=== PATIENT | female | born 1945 | race African-American/Black ===

== ENCOUNTER → 2016-04-30 | Outpatient (CLI) | payer MEDICARE ==
[2016-04-30 11:43] LABS: HEMATOCRIT 34.4 % (36.0-47.0); HEMOGLOBIN 11.6 g/dL (12.0-15.5); HGB HCT DIFFERENCE 0.4; MEAN CORPUSCULAR HEMOGLOBIN 30.5 pg (27.0-33.4); MEAN CORPUSCULAR HGB CONC 33.7 g/dL (32.0-36.0); MEAN CORPUSCULAR VOLUME 91 fl (80-97); WHITE BLOOD COUNT 4.1 10^3/uL (4.0-10.5)
[2016-04-30 12:13] LABS: ALANINE AMINOTRANSFERASE 17 U/L (9-52); ALBUMIN 3.7 g/dL (3.5-5.0); ALKALINE PHOSPHATASE 57 U/L (38-126); ASPARTATE AMINO TRANSFERASE 25 U/L (14-36); BILIRUBIN,TOTAL 0.4 mg/dL (0.2-1.3); CHOLESTEROL 130.27 mg/dL (0-200); Direct HDL 49 mg/dL (>40); MAGNESIUM 1.9 mg/dL (1.6-2.3); TOTAL PROTEIN 5.9 g/dL (6.3-8.2); TRIGLYCERIDES 65 mg/dL (<150)
[2016-04-30 12:14] LABS: ANION GAP 9 (5-19); BLOOD UREA NITROGEN 25 mg/dL (7-20); CALCIUM 9.6 mg/dL (8.4-10.2); CARBON DIOXIDE 31 mmol/L (22-30); CHLORIDE 103 mmol/L (98-107); CREATININE RESULT 1.18 mg/dL (0.52-1.25); GLUCOSE 101 mg/dL (75-110); POTASSIUM 4.5 mmol/L (3.6-5.0); SODIUM 142.9 mmol/L (137-145)
[2016-04-30 12:29] LABS: DIRECT LDL 69 mg/dL (<100)
== END ==
LOC: OD 10:26
PROVIDERS: ATTEND Internal Medicine Cardiovascular Disease
DX: E55.9 Vitamin D deficiency, unspecified (principal); E78.00 Pure hypercholesterolemia, unspecified; Z79.899 Other long term (current) drug therapy
CPT/HCPCS: 36415; 80048; 80061; 80076; 82306; 83735; 84443; 85027

== ENCOUNTER → 2016-05-07 | Outpatient (CLI) | payer MEDICARE | LOC: RAD 15:35 | PROVIDERS: ATTEND Surgery | DX: M79.603 Pain in arm, unspecified (principal); M19.011 Primary osteoarthritis, right shoulder ==

== ENCOUNTER → 2016-07-03 | Outpatient (CLI) | payer MEDICARE ==
[2016-07-03 14:53] LABS: HEMOGLOBIN 12.1 g/dL (12.0-15.5); HGB HCT DIFFERENCE 0.3; MEAN CORPUSCULAR HEMOGLOBIN 29.9 pg (27.0-33.4); MEAN CORPUSCULAR HGB CONC 33.7 g/dL (32.0-36.0); MEAN CORPUSCULAR VOLUME 89 fl (80-97); RED BLOOD COUNT 4.06 10^6/uL (3.72-5.28); RED CELL DISTRIBUTION WIDTH 12.9 % (11.5-14.0); WHITE BLOOD COUNT 3.6 10^3/uL (4.0-10.5)
[2016-07-03 15:23] LABS: ANION GAP 12 (5-19); BLOOD UREA NITROGEN 17 mg/dL (7-20); CALCIUM 9.7 mg/dL (8.4-10.2); CARBON DIOXIDE 28 mmol/L (22-30); CHLORIDE 105 mmol/L (98-107); CREATININE RESULT 1.01 mg/dL (0.52-1.25); GLUCOSE 136 mg/dL (75-110); MAGNESIUM 1.6 mg/dL (1.6-2.3); POTASSIUM 3.7 mmol/L (3.6-5.0); SODIUM 145.1 mmol/L (137-145)
[2016-07-04 15:29] LABS: APPEARANCE,URINE SLIGHTLY-CLOUDY; BILIRUBIN,URINE NEGATIVE (NEGATIVE); GLUCOSE, URINE NEGATIVE (NEGATIVE); KETONES,URINE NEGATIVE (NEGATIVE); LEUKOCYTE ESTERASE,URINE NEGATIVE (NEGATIVE); NITRITE,URINE NEGATIVE (NEGATIVE); PROTEIN,URINE NEGATIVE (NEGATIVE); URINE SPECIFIC GRAVITY 1.014
== END ==
LOC: OD 14:01
PROVIDERS: ATTEND Internal Medicine Nephrology
DX: E11.22 Type 2 diabetes mellitus with diabetic chronic kidney disease (principal); I12.9 Hypertensive chronic kidney disease with stage 1 through stage 4 chronic kidney disease, or unspecified chronic kidney disease; N18.3 Chronic kidney disease, stage 3 (moderate)
CPT/HCPCS: 36415; 80048; 81001; 83735; 85027

== ENCOUNTER → 2016-08-12 | Outpatient (CLI) | payer MEDICARE ==
[2016-08-12 10:30] LABS: ABSOLUTE EOSINOPHILS # (AUTO) 0.2 10^3/uL (0.0-0.6); ABSOLUTE LYMPHOCYTES (AUTO) 0.8 10^3/uL (0.5-4.7); ABSOLUTE MONOCYTES (AUTO) 0.2 10^3/uL (0.1-1.4); ABSOLUTE NEUT (AUTO) 1.9 10^3/uL (1.7-8.2); BASOPHILS % (AUTO) 0.9 % (0-2); HEMATOCRIT 32.3 % (36.0-47.0); HEMOGLOBIN 11.2 g/dL (12.0-15.5); HGB HCT DIFFERENCE 1.3; MEAN CORPUSCULAR HEMOGLOBIN 30.7 pg (27.0-33.4); MEAN CORPUSCULAR HGB CONC 34.8 g/dL (32.0-36.0); MEAN CORPUSCULAR VOLUME 88 fl (80-97); MONOCYTES % (AUTO) 7.8 % (3-13); RED BLOOD COUNT 3.66 10^6/uL (3.72-5.28); RED CELL DISTRIBUTION WIDTH 13.7 % (11.5-14.0); SEGMENTED NEUTROPHILS % (AUTO) 61.3 % (42-78); WHITE BLOOD COUNT 3.2 10^3/uL (4.0-10.5)
[2016-08-12 10:51] LABS: ALANINE AMINOTRANSFERASE 26 U/L (9-52); ALBUMIN 4.1 g/dL (3.5-5.0); ALKALINE PHOSPHATASE 57 U/L (38-126); ANION GAP 12 (5-19); ASPARTATE AMINO TRANSFERASE 25 U/L (14-36); BILIRUBIN,DIRECT 0.1 mg/dL (0.0-0.4); BILIRUBIN,TOTAL 0.5 mg/dL (0.2-1.3); BLOOD UREA NITROGEN 19 mg/dL (7-20); CALCIUM 9.9 mg/dL (8.4-10.2); CARBON DIOXIDE 29 mmol/L (22-30); CHLORIDE 103 mmol/L (98-107); CHOLESTEROL 137.13 mg/dL (0-200); CREATININE RESULT 1.15 mg/dL (0.52-1.25); Direct HDL 64 mg/dL (>40); GLUCOSE 99 mg/dL (75-110); POTASSIUM 3.8 mmol/L (3.6-5.0); SODIUM 144.2 mmol/L (137-145); TOTAL PROTEIN 6.3 g/dL (6.3-8.2); TRIGLYCERIDES 64 mg/dL (<150)
[2016-08-12 11:02] LABS: DIRECT LDL 50 mg/dL (<100)
== END ==
LOC: OD 08:50
PROVIDERS: ATTEND Internal Medicine
DX: E11.9 Type 2 diabetes mellitus without complications (principal); I10 Essential (primary) hypertension; E78.5 Hyperlipidemia, unspecified; E55.9 Vitamin D deficiency, unspecified; R53.83 Other fatigue
CPT/HCPCS: 36415; 80053; 80061; 82043; 82306; 83036; 84443; 85025

== ENCOUNTER → 2016-08-13 | Outpatient (CLI) | payer MEDICARE ==
[2016-08-13 09:28] LABS: ANION GAP 14 (5-19); BLOOD UREA NITROGEN 19 mg/dL (7-20); CALCIUM 10.1 mg/dL (8.4-10.2); CARBON DIOXIDE 30 mmol/L (22-30); CHLORIDE 100 mmol/L (98-107); CREATININE RESULT 1.06 mg/dL (0.52-1.25); GLUCOSE 110 mg/dL (75-110); MAGNESIUM 1.9 mg/dL (1.6-2.3); SODIUM 143.7 mmol/L (137-145)
== END ==
LOC: OD 07:45
PROVIDERS: ATTEND Internal Medicine Cardiovascular Disease
DX: N18.2 Chronic kidney disease, stage 2 (mild) (principal)
CPT/HCPCS: 36415; 80048; 83735

== ENCOUNTER → 2016-08-27 | Outpatient (CLI) | payer MEDICARE ==
[2016-08-27 11:32] LABS: HEMOGLOBIN 11.1 g/dL (12.0-15.5); HGB HCT DIFFERENCE 0.3; MEAN CORPUSCULAR HEMOGLOBIN 30.2 pg (27.0-33.4); MEAN CORPUSCULAR HGB CONC 33.7 g/dL (32.0-36.0); MEAN CORPUSCULAR VOLUME 90 fl (80-97); RED BLOOD COUNT 3.68 10^6/uL (3.72-5.28); RED CELL DISTRIBUTION WIDTH 13.8 % (11.5-14.0); WHITE BLOOD COUNT 3.6 10^3/uL (4.0-10.5)
[2016-08-27 11:38] LABS: APPEARANCE,URINE CLEAR; BILIRUBIN,URINE NEGATIVE (NEGATIVE); GLUCOSE, URINE NEGATIVE (NEGATIVE); KETONES,URINE NEGATIVE (NEGATIVE); LEUKOCYTE ESTERASE,URINE NEGATIVE (NEGATIVE); NITRITE,URINE NEGATIVE (NEGATIVE); PROTEIN,URINE NEGATIVE (NEGATIVE); URINE SPECIFIC GRAVITY 1.009; UROBILINOGEN,URINE NEGATIVE mg/dL (<2.0)
[2016-08-27 11:53] LABS: ANION GAP 10 (5-19); BLOOD UREA NITROGEN 19 mg/dL (7-20); CALCIUM 9.4 mg/dL (8.4-10.2); CARBON DIOXIDE 29 mmol/L (22-30); CHLORIDE 105 mmol/L (98-107); CREATININE RESULT 1.08 mg/dL (0.52-1.25); GLUCOSE 95 mg/dL (75-110); MAGNESIUM 1.9 mg/dL (1.6-2.3); POTASSIUM 4.1 mmol/L (3.6-5.0); SODIUM 143.9 mmol/L (137-145)
== END ==
LOC: OD 10:47
PROVIDERS: ATTEND Internal Medicine Nephrology
DX: E11.22 Type 2 diabetes mellitus with diabetic chronic kidney disease (principal); I12.9 Hypertensive chronic kidney disease with stage 1 through stage 4 chronic kidney disease, or unspecified chronic kidney disease; N18.3 Chronic kidney disease, stage 3 (moderate)
CPT/HCPCS: 36415; 80048; 81001; 83735; 85027

== ENCOUNTER → 2017-02-02 | Outpatient (CLI) | payer MEDICARE ==
--- NOTE | 2017-02-03 17:52 | WOMENS IMAGING REPORT ---
EXAM DESCRIPTION: 3D SCREENING MAMMO RIGHT COMPLETED DATE/TIME: 02/02/2017 9:56 am REASON FOR STUDY: ROUTINE SCREENING Z12.31 Z12.31 ENCNTR SCREEN MAMMOGRAM FOR MALIGNANT NEOPLASM OF JONATAN COMPARISON: Multiple since 2008 TECHNIQUE: Standard craniocaudal and mediolateral oblique views of the right breast recorded using d igital acquisition and breast tomosynthesis. LIMITATIONS: None. FINDINGS: BREAST: Right No masses, worrisome calcifications or architectural distortion. No areas of suspicion. Read with the assistance of CAD. .[facility] - R2 Cenova Version 1.3 .[facility] Imaging - R2 Cenova Version 1.3 .[facility] Imaging - R2 Cenova Version 2.4 .[facility] - R2 Cenova Version 2.4 .[facility] - R2 D[employer] Version 9.2 IMPRESSION: NORMAL MAMMOGRAM. BIRADS 1. BREAST DENSITY: b. There are scattered areas of fibroglandular density. BIRAD: 1 Negative RECOMMENDATION: RECOMMENDATION: ROUTINE SCREENING. Please continue yearly bilateral screening tomosynthesis in January 2018 COMMENT: The patient has been notified of the results by letter per SA requirements. Additional no tification policies are in place for contacting patient with suspicious or incomplete findings. Quality ID #[id number]: The [employer] recommends an annual screening mammogram for women aged 40 years or over. This facility utilizes a reminder system to ensure that all patients receive reminder letters, and/or direct phone calls for appointments. This includes reminders for routine scr eening mammograms, diagnostic mammograms, or other Breast Imaging Interventions when appropriate. Th is patient will be placed in the appropriate reminder system. The [employer] (ACR) has developed recommendations for screening MRI of the breast s in certain patient populations, to be used in conjunction with mammography. Breast MRI surveillance may be appropriate for women with more than 20% lifetime risk of developing breast cancer as determi yuko by genetic testing, significant family history of the disease, or history of mantle radiation for Hodgkins Disease. ACR Practice Guidelines 2008. DBT Technology DBT is a type of tomographic mammography. With conventional mammography, overlapping breast tissue ma y make lesions difficult to detect, even with good compression. DBT uses an x-ray tube that rotates a round the breast, taking images at different angles. These images are then combined to create thin sl ices of the breast that the radiologist can view as a 3D reconstruction. The [employer]rad unit can perform full-field digital mammograms (2D imaging); or DBT (3D imaging); or both, in a combination mode that quickly performs both the mammogram and the tomosynthesis scan while the breast is still compressed. PQRS 6045F: Fluoroscopic imaging is not utilized for breast tomosynthesis. TECHNICAL DOCUMENTATION: FINDING NUMBER: (1) ASSESSMENT: (1) JOB ID: [id number] [employer]- All Rights Reserved
== END ==
LOC: WI 09:31
PROVIDERS: ATTEND Internal Medicine
DX: Z12.31 Encounter for screening mammogram for malignant neoplasm of breast (principal)
CPT/HCPCS: 77063; G0202

== ENCOUNTER → 2017-03-23 | Outpatient (CLI) | payer MEDICARE ==
--- NOTE | 2017-03-23 11:10 | WOMENS IMAGING REPORT ---
EXAM DESCRIPTION: BONE DENSITY HIP/SPINE COMPLETED DATE/TIME: 03/23/2017 10:50 am REASON FOR STUDY: OSTEOPOROSIS M81.0 AGE-RELATED OSTEOPOROSIS W/O CURRENT PATHOLOGICAL FRAC COMPARISON: 11/03/2012 TECHNIQUE: Dual-Energy X-ray Absorptiometry (DEXA) of the AP Spine and Hip. LIMITATIONS: None. FINDINGS: LUMBAR SPINE: The bone mineral density (BMD) measured from L1-L4 in the AP projection correlates with a T-score of 4.0, previously 2.0, which is normal as defined by the World Health Organization. HIP: The bone mineral density (BMD) measured in the left hip correlates with a T-score of 0.6, previously 1.3, which is normal as defined by the World Health Organization. IMPRESSION: 1. LUMBAR SPINE: NORMAL. 2. HIP: NORMAL. COMMENT: The World Health Organization defines low BMD as follows: T-score: Normal: Greater than -1.0 Osteopenia: Between -1.0 and -2.5 Osteoporosis: Less than -2.5 without fractures Established osteoporosis: Less than -2.5 with fractures In general, you may wish to consider: Diagnosis Treatment Follow-up DEXA Normal BMD Prevention 2-3 years Osteopenia Prevention/Therapy 1-2 years Osteoporosis Therapy Yearly TECHNICAL DOCUMENTATION: JOB ID: [id number]- All Rights Reserved
== END ==
LOC: WI 10:31
PROVIDERS: ATTEND Internal Medicine
DX: M81.0 Age-related osteoporosis without current pathological fracture (principal)
CPT/HCPCS: 77080

== ENCOUNTER → 2017-05-19 | Outpatient (CLI) | payer MEDICARE ==
[2017-05-19 08:40] LABS: ABSOLUTE EOSINOPHILS # (AUTO) 0.1 10^3/uL (0.0-0.6); ABSOLUTE LYMPHOCYTES (AUTO) 1.2 10^3/uL (0.5-4.7); ABSOLUTE MONOCYTES (AUTO) 0.5 10^3/uL (0.1-1.4); ABSOLUTE NEUT (AUTO) 4.5 10^3/uL (1.7-8.2); BASOPHILS % (AUTO) 0.7 % (0-2); EOSINOPHILS % (AUTO) 0.9 % (0-6); HEMATOCRIT 32.8 % (36.0-47.0); LYMPHOCYTES % (AUTO) 19.3 % (13-45); MEAN CORPUSCULAR HEMOGLOBIN 29.2 pg (27.0-33.4); MEAN CORPUSCULAR HGB CONC 33.6 g/dL (32.0-36.0); MEAN CORPUSCULAR VOLUME 87 fl (80-97); MONOCYTES % (AUTO) 8.3 % (3-13); PLATELET COUNT 142 10^3/uL (150-450); RED BLOOD COUNT 3.77 10^6/uL (3.72-5.28); RED CELL DISTRIBUTION WIDTH 14.4 % (11.5-14.0); SEGMENTED NEUTROPHILS % (AUTO) 70.8 % (42-78); TOTAL CELLS COUNTED % (AUTO) 100 %; WHITE BLOOD COUNT 6.3 10^3/uL (4.0-10.5)
[2017-05-19 09:07] LABS: ALANINE AMINOTRANSFERASE 26 U/L (9-52); ALBUMIN 4.1 g/dL (3.5-5.0); ALKALINE PHOSPHATASE 55 U/L (38-126); ANION GAP 10 (5-19); ASPARTATE AMINO TRANSFERASE 40 U/L (14-36); BILIRUBIN,DIRECT 0.3 mg/dL (0.0-0.4); BILIRUBIN,TOTAL 0.4 mg/dL (0.2-1.3); BLOOD UREA NITROGEN 28 mg/dL (7-20); CALCIUM 9.9 mg/dL (8.4-10.2); CARBON DIOXIDE 29 mmol/L (22-30); CHLORIDE 106 mmol/L (98-107); CHOLESTEROL 167.39 mg/dL (0-200); GLUCOSE 91 mg/dL (75-110); POTASSIUM 4.4 mmol/L (3.6-5.0); TOTAL PROTEIN 6.6 g/dL (6.3-8.2); TRIGLYCERIDES 48 mg/dL (<150)
[2017-05-19 09:10] LABS: APPEARANCE,URINE SLIGHTLY-CLOUDY; BILIRUBIN,URINE NEGATIVE (NEGATIVE); COLOR,URINE YELLOW; GLUCOSE, URINE NEGATIVE (NEGATIVE); KETONES,URINE NEGATIVE (NEGATIVE); LEUKOCYTE ESTERASE,URINE MODERATE (NEGATIVE); NITRITE,URINE NEGATIVE (NEGATIVE); PROTEIN,URINE NEGATIVE (NEGATIVE); URINE SPECIFIC GRAVITY 1.012; UROBILINOGEN,URINE NEGATIVE mg/dL (<2.0)
[2017-05-19 09:18] LABS: DIRECT LDL 78 mg/dL (<100)
== END ==
LOC: LAB 08:19
PROVIDERS: ATTEND Internal Medicine
DX: E78.5 Hyperlipidemia, unspecified (principal); E11.9 Type 2 diabetes mellitus without complications; I10 Essential (primary) hypertension; D64.9 Anemia, unspecified; R41.82 Altered mental status, unspecified; R41.3 Other amnesia
CPT/HCPCS: 36415; 80053; 80061; 81001; 82607; 83036; 84443; 85025; 86592; 87086

== ENCOUNTER → 2017-05-20 | Outpatient (CLI) | payer MEDICARE ==
--- NOTE | 2017-05-20 10:00 | RADIOLOGY REPORT (SQ) ---
EXAM DESCRIPTION: CT HEAD COMBO COMPLETED DATE/TIME: 05/20/2017 9:10 am REASON FOR STUDY: R41.82 ALTERED MENTAL STATUS, UNSPECIFIED R41.82 ALTERED MENTAL STATUS, UNSPECIFI ED COMPARISON: MRI brain 12/07/2012 CT brain 11/25/2012 TECHNIQUE: Axial images acquired through the brain without and with intravenous contrast. Images re viewed with bone, brain and subdural windows. Images stored on PACS. All CT scanners at this facility use dose modulation, iterative reconstruction, and/or weight based d osing when appropriate to reduce radiation dose to as low as reasonably achievable (ALARA). [facility]: Dose Right [facility]: CareDose [facility]: Dose Right [facility]: Teradose 4D [facility]: [employer] CONTRAST TYPE AND DOSE: contrast/concentration: Isovue 370.00 mg/ml; Total Contrast Delivered: 50.0 ml; Total Saline Delivered: 55.0 ml RENAL FUNCTION: Creatinine 1.0 RADIATION DOSE: CT Rad equipment meets quality standard of care and radiation dose reduction techniq ues were employed. CTDIvol: 49.0 mGy. DLP: 1566 mGy-cm.. LIMITATIONS: None. FINDINGS: VENTRICLES: Normal size and contour. CEREBRUM: No masses. No hemorrhage. No midline shift. Diffuse chronic bifrontal and biparietal white matter disease with low attenuation from chronic small vessel ischemic change. No evidence for acut e infarction. No enhancing lesions. CEREBELLUM: No masses. No hemorrhage. No alteration of density. No evidence for acute infarction. No enhancing lesions. EXTRA-AXIAL SPACES: No fluid collections. No enhancing lesions. ORBITS AND GLOBE: No intra- or extraconal masses. Normal contour of globe without masses. CALVARIUM: No fracture. PARANASAL SINUSES: No fluid or mucosal thickening. SOFT TISSUES: No mass or hematoma. OTHER: No other significant finding. IMPRESSION: Diffuse small vessel ischemic change. No acute findings. No abnormal brain parenchymal enhancement. EVIDENCE OF ACUTE STROKE: NO. TECHNICAL DOCUMENTATION: JOB ID: [id number] Quality ID # [id number]: Final reports with documentation of one or more dose reduction techniques (e.g., Au tomated exposure control, adjustment of the mA and/or kV according to patient size, use of iterative reconstruction technique) 2010 [employer]- All Rights Reserved
== END ==
LOC: RAD 08:49
PROVIDERS: ATTEND Internal Medicine
DX: R41.82 Altered mental status, unspecified (principal)
CPT/HCPCS: 70470

== ENCOUNTER → 2017-06-15 | Outpatient (CLI) | payer MEDICARE ==
[2017-06-15 13:28] LABS: ALANINE AMINOTRANSFERASE 22 U/L (9-52); ALBUMIN 3.8 g/dL (3.5-5.0); ALKALINE PHOSPHATASE 47 U/L (38-126); ANION GAP 11 (5-19); ASPARTATE AMINO TRANSFERASE 26 U/L (14-36); BILIRUBIN,DIRECT 0.3 mg/dL (0.0-0.4); BILIRUBIN,TOTAL 0.4 mg/dL (0.2-1.3); BLOOD UREA NITROGEN 16 mg/dL (7-20); CALCIUM 9.2 mg/dL (8.4-10.2); CARBON DIOXIDE 30 mmol/L (22-30); CHLORIDE 102 mmol/L (98-107); CHOLESTEROL 173.01 mg/dL (0-200); GLUCOSE 107 mg/dL (75-110); POTASSIUM 4.7 mmol/L (3.6-5.0); TOTAL PROTEIN 6.3 g/dL (6.3-8.2); TRIGLYCERIDES 53 mg/dL (<150)
[2017-06-15 13:39] LABS: DIRECT LDL 74 mg/dL (<100)
== END ==
LOC: OD 11:57
PROVIDERS: ATTEND Internal Medicine Cardiovascular Disease
DX: E78.00 Pure hypercholesterolemia, unspecified (principal); I10 Essential (primary) hypertension; Z79.899 Other long term (current) drug therapy
CPT/HCPCS: 36415; 80048; 80061; 80076

== ENCOUNTER 2017-07-22 09:34 | Emergency (ER) | payer MEDICARE ==
--- NOTE | 2017-07-22 10:48 | ER Document Report ---
ED Medical Screen (RME) - General Chief Complaint: Altered Mental Status Stated Complaint: ALTERED MENTAL STATUS Time Seen by Provider: 07/22/17 10:43 Notes: RME DISCLOSURE I have seen this patient as part of a Rapid Medical Evaluation and, if applicable, placed any initially appropriate orders. The patient will be seen and fully evaluated, including a full history and physical exam, by a provider ( in Main ED or Fast Track) when a room becomes available. 71-year-old female sent here from PCP Dr Ayala office for "altered mental status". states that over the past 4 weeks she has been losing her memory and talking about "kids running down the hallway". She stopped driving back in January. The symptoms have been slowly worsening. states that PCP perform blood work and "brain scan" 4 weeks ago. TRAVEL OUTSIDE OF THE [place] IN LAST 30 DAYS: No - Related Data Allergies/Adverse Reactions: codeine [Codeine] Adverse Reaction (Intermediate, Verified 07/22/17 09:37) Nausea Past Medical History - Social History Chew tobacco use (# tins/day): No Frequency of alcohol use: None Drug Abuse: None - Past Medical History Cardiac Medical History: Reports: Hx Hypercholesterolemia, Hx Hypertension Denies: Hx Coronary Artery Disease, Hx Heart Attack Pulmonary Medical History: Reports: Hx Pneumonia - no hospitalization Denies: Hx Asthma, Hx Bronchitis, Hx COPD, Hx Tuberculosis Neurological Medical History: Denies: Hx Cerebrovascular Accident, Hx Seizures Endocrine Medical History: Reports: Hx Diabetes Mellitus Type 2 Renal/ Medical History: Denies: Hx Peritoneal Dialysis GI Medical History: Reports: Hx Gastroesophageal Reflux Disease Musculoskeltal Medical History: Reports Hx Arthritis Past Surgical History: Reports: Hx Hysterectomy, Hx Mastectomy. Denies: Hx Pacemaker - Immunizations Hx Diphtheria, Pertussis, Tetanus Vaccination: Yes - 2005 Physical Exam - Vital signs Vitals: Temp Pulse Resp BP Pulse Ox 97.8 F 73 16 155/79 H 100 07/22/17 09:45 07/22/17 09:45 07/22/17 09:45 07/22/17 09:45 07/22/17 09:45 Course - Vital Signs Vital signs: Temp Pulse Resp BP Pulse Ox 97.8 F 73 16 155/79 H 100 07/22/17 09:45 07/22/17 09:45 07/22/17 09:45 07/22/17 09:45 07/22/17 09:45
--- NOTE | 2017-07-22 11:27 | RADIOLOGY REPORT (SQ) ---
EXAM DESCRIPTION: CT HEAD WITHOUT COMPLETED DATE/TIME: 07/22/2017 11:16 am REASON FOR STUDY: AMS; eval bleed tumor COMPARISON: CT brain 05/20/2017, 11/25/2012 TECHNIQUE: Axial images acquired through the brain without intravenous contrast. Images reviewed wi th bone, brain and subdural windows. Additional sagittal and coronal reconstructions were generated. Images stored on PACS. All CT scanners at this facility use dose modulation, iterative reconstruction, and/or weight based d osing when appropriate to reduce radiation dose to as low as reasonably achievable (ALARA). [facility]: Dose Right [facility]: CareDose [facility]: Dose Right [facility]: Teradose 4D [facility]: [employer] RADIATION DOSE: CT Rad equipment meets quality standard of care and radiation dose reduction techniq ues were employed. CTDIvol: 53.2 mGy. DLP: 964 mGy-cm. mGy. LIMITATIONS: None. FINDINGS: VENTRICLES: Normal size and contour. CEREBRUM: Extensive white matter low attenuation in the bifrontal and biparietal regions and deep per iventricular white matter, similar compared to studies dating back to 11/25/2012. This most likely rep resents advanced white matter disease, chronic small vessel disease. No CT evidence of acute large territory ischemic change, acute intracranial hemorrhage mass effect or midline shift. CEREBELLUM: No masses. No hemorrhage. No alteration of density. No evidence for acute infarction. EXTRAAXIAL SPACES: No fluid collections. No masses. ORBITS AND GLOBE: No intra- or extraconal masses. Normal contour of globe without masses. CALVARIUM: No fracture. PARANASAL SINUSES: No fluid or mucosal thickening. SOFT TISSUES: No mass or hematoma. OTHER: No other significant finding. IMPRESSION: Extensive chronic white matter disease similar compared to 11/25/2012 CT brain. No acute findings. EVIDENCE OF ACUTE STROKE: No COMMENT: Quality ID # 436: Final reports with documentation of one or more dose reduction techniques (e.g., Automated exposure control, adjustment of the mA and/or kV according to patient size, use of iterative reconstruction technique) TECHNICAL DOCUMENTATION: JOB ID: [id number] [employer]- All Rights Reserved Reading location - IP/workstation name: [facility]
[2017-07-22 11:30] LABS: ABSOLUTE EOSINOPHILS # (AUTO) 0.2 10^3/uL (0.0-0.6); ABSOLUTE MONOCYTES (AUTO) 0.5 10^3/uL (0.1-1.4); ABSOLUTE NEUT (AUTO) 2.9 10^3/uL (1.7-8.2); BASOPHILS % (AUTO) 0.6 % (0-2); EOSINOPHILS % (AUTO) 4.6 % (0-6); HEMATOCRIT 34.8 % (36.0-47.0); HEMOGLOBIN 11.6 g/dL (12.0-15.5); LYMPHOCYTES % (AUTO) 22.4 % (13-45); MEAN CORPUSCULAR HEMOGLOBIN 29.3 pg (27.0-33.4); MEAN CORPUSCULAR HGB CONC 33.2 g/dL (32.0-36.0); MEAN CORPUSCULAR VOLUME 88 fl (80-97); MONOCYTES % (AUTO) 9.9 % (3-13); PLATELET COUNT 146 10^3/uL (150-450); RED BLOOD COUNT 3.94 10^6/uL (3.72-5.28); RED CELL DISTRIBUTION WIDTH 14.4 % (11.5-14.0); SEGMENTED NEUTROPHILS % (AUTO) 62.5 % (42-78); TOTAL CELLS COUNTED % (AUTO) 100 %; WHITE BLOOD COUNT 4.6 10^3/uL (4.0-10.5)
[2017-07-22 11:42] LABS: APPEARANCE,URINE CLEAR; BILIRUBIN,URINE NEGATIVE (NEGATIVE); COLOR,URINE YELLOW; GLUCOSE, URINE NEGATIVE (NEGATIVE); KETONES,URINE NEGATIVE (NEGATIVE); LEUKOCYTE ESTERASE,URINE LARGE (NEGATIVE); NITRITE,URINE NEGATIVE (NEGATIVE); PROTEIN,URINE NEGATIVE (NEGATIVE); URINE SPECIFIC GRAVITY 1.013; UROBILINOGEN,URINE NEGATIVE mg/dL (<2.0)
--- NOTE | 2017-07-22 11:44 | ER Document Report ---
ED General - General Chief Complaint: Altered Mental Status Stated Complaint: ALTERED MENTAL STATUS Time Seen by Provider: 07/22/17 10:43 Mode of Arrival: Ambulatory Information source: Patient, Relative Notes: This is a 71-year-old female with a history of hypertension, diabetes, dyslipidemia, breast cancer (status post left mastectomy) who is brought into the emergency room with increasing confusion and wandering. The patient is accompanied by her who states that he first started noticing changes in the patient last January and they have progressively worsened. He states she frequently wanders at night and has been wandering the past 2 nights. He denies any recent fevers, chills, nausea vomiting or illnesses. TRAVEL OUTSIDE OF THE [place] IN LAST 30 DAYS: No - HPI Onset: Last week Onset/Duration: Gradual Quality of pain: No pain Severity: None Pain Level: Denies Associated symptoms: denies: Chest pain, Fever, Shortness of breath Exacerbated by: Denies Relieved by: Denies Similar symptoms previously: Yes Recently seen / treated by doctor: Yes - Related Data Allergies/Adverse Reactions: codeine [Codeine] Adverse Reaction (Intermediate, Verified 07/22/17 09:37) Nausea Past Medical History - General Information source: Patient - Social History Smoking Status: Never Smoker Cigarette use (# per day): No Chew tobacco use (# tins/day): No Frequency of alcohol use: None Drug Abuse: None Lives with: Family Family History: Reviewed & Not Pertinent Patient has suicidal ideation: No Patient has homicidal ideation: No - Past Medical History Cardiac Medical History: Reports: Hx Hypercholesterolemia, Hx Hypertension Denies: Hx Coronary Artery Disease, Hx Heart Attack Pulmonary Medical History: Reports: Hx Pneumonia - no hospitalization Denies: Hx Asthma, Hx Bronchitis, Hx COPD, Hx Tuberculosis Neurological Medical History: Denies: Hx Cerebrovascular Accident, Hx Seizures Endocrine Medical History: Reports: Hx Diabetes Mellitus Type 2 Renal/ Medical History: Denies: Hx Peritoneal Dialysis GI Medical History: Reports: Hx Gastroesophageal Reflux Disease Musculoskeltal Medical History: Reports Hx Arthritis Past Surgical History: Reports: Hx Hysterectomy, Hx Mastectomy. Denies: Hx Pacemaker - Immunizations Hx Diphtheria, Pertussis, Tetanus Vaccination: Yes - 2005 Hx Pneumococcal Vaccination: 01/30/12 Review of Systems - Review of Systems Constitutional: denies: Chills, Fever EENT: No symptoms reported Cardiovascular: No symptoms reported Respiratory: No symptoms reported Gastrointestinal: No symptoms reported Genitourinary: No symptoms reported Female Genitourinary: No symptoms reported Musculoskeletal: No symptoms reported Skin: No symptoms reported Hematologic/Lymphatic: No symptoms reported Neurological/Psychological: See HPI Physical Exam - Vital signs Vitals: Temp Pulse Resp BP Pulse Ox 97.8 F 73 16 155/79 H 100 07/22/17 09:45 07/22/17 09:45 07/22/17 09:45 07/22/17 09:45 07/22/17 09:45 Notes: Physical exam: GENERAL: 71-year-old female, alert, she is to have some baseline dementia. She is tearful but in no acute distress. HEAD: Atraumatic, normocephalic. EYES: Pupils equal round and reactive to light, extraocular movements intact, sclera anicteric, conjunctiva are normal. ENT: TMs normal, nares patent, oropharynx clear without exudates. Moist mucous membranes. NECK: Normal range of motion, supple without obvious mass. LUNGS: Breath sounds clear to auscultation bilaterally and equal. No wheezes rales or rhonchi. HEART: Regular rate and rhythm without murmurs, rubs or gallops. ABDOMEN: Soft, normoactive bowel sounds. No tenderness to palpation. No guarding, no rebound. No masses appreciated. Rectal: Some external hemorrhoids, no masses, good sphincter tone, stool brown: sent for study. EXTREMITIES: Normal range of motion, no pitting or edema. No clubbing or cyanosis. NEUROLOGICAL: Cranial nerves II through XII grossly intact. Normal speech, moving all extremities. Motor 5/5, sensory grossly intact. PSYCH: Tearful SKIN: Warm, Dry, normal turgor, no rashes or lesions noted. Course - Re-evaluation Re-evalutation: 07/22/17 19:26 I discussed case with Dr. Jef plasencia who would like to treat the patient with some ceftriaxone and IV fluids and put her on some Cipro for possible early UTI. He will follow-up with the patient on Thursday in the office. I have discussed this plan with the patient's and he is agreeable to this. - Vital Signs Vital signs: Temp Pulse Resp BP Pulse Ox 97.8 F 72 16 186/78 H 99 07/22/17 17:27 07/22/17 17:27 07/22/17 17:27 07/22/17 17:27 07/22/17 17:27 - Laboratory Result Diagrams: 07/22/17 11:05 07/22/17 11:05 Laboratory results interpreted by me: 07/22/17 07/22/17 07/22/17 11:05 11:05 11:05 Hgb 11.6 L Hct 34.8 L RDW 14.4 H Plt Count 146 L Carbon Dioxide 34 H BUN 21 H Est GFR (Non-Af Amer) 54 L Ur Leukocyte Esterase LARGE H - Diagnostic Test Radiology reviewed: Image reviewed, Reports reviewed - CT of the head shows extensive chronic white matter disease - EKG Interpretation by Me Rate: Normal Rhythm: NSR - EKG shows normal sinus rhythm with a ventricular rate of 70, consistent with LVH. No significant change from previous per Discharge - Discharge Clinical Impression: Altered mental status Condition: Stable Disposition: HOME, SELF-CARE Additional Instructions: We discussed, the labs look generally good. We are going to treat Ms. Lopez for urine infection. She did receive IV ceftriaxone and some IV fluids in the emergency room. The plan will be to start the oral antibiotic tomorrow. Thank you for choosing [facility] for your care. The examination and treatment you have received in the Emergency Department today has been rendered on an emergency basis only and is not intended to be a substitute for complete medical care. You should contact your doctor as it is important that she/he examine you for any new or remaining problems. If given a copy of any lab tests or radiology reports, please bring them with you when you see your physician. If your problem worsens or new symptoms appear and you are unable to arrange prompt follow-up care, return to the Emergency Department. Specific signs to look out for: Worsening mental status changes, fever, not tolerating fluids or any concerns Ms. Lopez is getting worse. Any other instructions: Start the antibiotics tomorrow morning. Take as prescribed. Follow-up with Dr. Fuchs on Thursday Prescriptions: Ciprofloxacin HCl [Cipro 500 mg Tablet] 500 mg PO BID #14 tablet Referrals: MONICA ABBASI MD [Primary Care Provider] - 07/27/17
[2017-07-22 11:45] LABS: ALANINE AMINOTRANSFERASE 31 U/L (9-52); ALBUMIN 4.1 g/dL (3.5-5.0); ALKALINE PHOSPHATASE 62 U/L (38-126); ANION GAP 8 (5-19); ASPARTATE AMINO TRANSFERASE 35 U/L (14-36); BILIRUBIN,DIRECT 0.1 mg/dL (0.0-0.4); BILIRUBIN,TOTAL 0.3 mg/dL (0.2-1.3); BLOOD UREA NITROGEN 21 mg/dL (7-20); CALCIUM 9.4 mg/dL (8.4-10.2); CARBON DIOXIDE 34 mmol/L (22-30); CHLORIDE 103 mmol/L (98-107); GLUCOSE 110 mg/dL (75-110); PHOSPHORUS 3.6 mg/dL (2.5-4.5); POTASSIUM 3.9 mmol/L (3.6-5.0); SODIUM 144.5 mmol/L (137-145); TOTAL PROTEIN 6.5 g/dL (6.3-8.2)
--- NOTE | 2017-07-22 12:08 | RADIOLOGY REPORT (SQ) ---
EXAM DESCRIPTION: CHEST SINGLE VIEW COMPLETED DATE/TIME: 07/22/2017 11:56 am REASON FOR STUDY: altered mental status COMPARISON: CT chest 02/25/2013 Two-view chest 09/23/2013 EXAM PARAMETERS: NUMBER OF VIEWS: One view. TECHNIQUE: Single frontal radiographic view of the chest acquired. RADIATION DOSE: NA LIMITATIONS: None. FINDINGS: LUNGS AND PLEURA: No opacities, masses or pneumothorax. No pleural effusion. MEDIASTINUM AND HILAR STRUCTURES: No masses. Contour normal. HEART AND VASCULAR STRUCTURES: Heart normal in size. Normal vasculature. BONES: No acute findings. HARDWARE: Clips post left mastectomy OTHER: No other significant finding. IMPRESSION: NO ACUTE RADIOGRAPHIC FINDING IN THE CHEST. TECHNICAL DOCUMENTATION: JOB ID: [id number] [employer]- All Rights Reserved Reading location - IP/workstation name: [email or web address]
[2017-07-22] MEDS ORDERED: CEFTRIAXONE INJ 500 MG VIAL IV ONE (13:17)
[2017-07-22] MEDS ORDERED: NORMAL SALINE 500 ML IV ONE (13:18)
[2017-07-22] MEDS ORDERED: CEFTRIAXONE INJ 500 MG VIAL ONE (15:06)
[2017-07-22 17:28] VITALS: BP 186/78
--- NOTE | 2017-07-22 23:29 | EKG REPORT ---
SEVERITY:- ABNORMAL ECG - SINUS RHYTHM LEFT VENTRICULAR HYPERTROPHY : Confirmed by: Elmer White 22-Jul-2017 23:29:00
== END 2017-07-22 17:45 | disposition home or self-care (01) ==
LOC: ER 09:34
DX: R41.82 Altered mental status, unspecified (principal); F03.90 Unspecified dementia, unspecified severity, without behavioral disturbance, psychotic disturbance, mood disturbance, and anxiety; K64.4 Residual hemorrhoidal skin tags; E78.00 Pure hypercholesterolemia, unspecified; I10 Essential (primary) hypertension; E11.9 Type 2 diabetes mellitus without complications; Z90.710 Acquired absence of both cervix and uterus; Z85.3 Personal history of malignant neoplasm of breast; Z88.6 Allergy status to analgesic agent; Z90.12 Acquired absence of left breast and nipple
CPT/HCPCS: 93005; 99285; 96365; 36415; 87086; 83735; 84100; 84443; 85025; 82272; 80053; 81001; 71045; 70450; 93010; J0696; J7040

== ENCOUNTER → 2017-08-28 | Outpatient (CLI) | payer MEDICARE ==
[2017-08-28 08:33] LABS: HEMATOCRIT 34.4 % (36.0-47.0); HEMOGLOBIN 11.6 g/dL (12.0-15.5); MEAN CORPUSCULAR HEMOGLOBIN 30.7 pg (27.0-33.4); MEAN CORPUSCULAR HGB CONC 33.8 g/dL (32.0-36.0); MEAN CORPUSCULAR VOLUME 91 fl (80-97); PLATELET COUNT 132 10^3/uL (150-450); RED BLOOD COUNT 3.79 10^6/uL (3.72-5.28); WHITE BLOOD COUNT 3.4 10^3/uL (4.0-10.5)
[2017-08-28 08:38] LABS: APPEARANCE,URINE SLIGHTLY-CLOUDY; BILIRUBIN,URINE NEGATIVE (NEGATIVE); COLOR,URINE YELLOW; GLUCOSE, URINE NEGATIVE (NEGATIVE); KETONES,URINE NEGATIVE (NEGATIVE); LEUKOCYTE ESTERASE,URINE TRACE (NEGATIVE); NITRITE,URINE NEGATIVE (NEGATIVE); PROTEIN,URINE NEGATIVE (NEGATIVE); URINE SPECIFIC GRAVITY 1.015; UROBILINOGEN,URINE NEGATIVE mg/dL (<2.0)
[2017-08-28 08:50] LABS: ANION GAP 8 (5-19); BLOOD UREA NITROGEN 22 mg/dL (7-20); CALCIUM 9.2 mg/dL (8.4-10.2); CARBON DIOXIDE 33 mmol/L (22-30); CHLORIDE 107 mmol/L (98-107); GLUCOSE 105 mg/dL (75-110); PHOSPHORUS 2.5 mg/dL (2.5-4.5); POTASSIUM 4.5 mmol/L (3.6-5.0); SODIUM 147.7 mmol/L (137-145)
== END ==
LOC: LAB 08:12
PROVIDERS: ATTEND Internal Medicine Nephrology
DX: I12.9 Hypertensive chronic kidney disease with stage 1 through stage 4 chronic kidney disease, or unspecified chronic kidney disease (principal); N18.2 Chronic kidney disease, stage 2 (mild); E11.9 Type 2 diabetes mellitus without complications; D64.9 Anemia, unspecified
CPT/HCPCS: 36415; 80048; 81001; 83735; 84100; 85027

== ENCOUNTER → 2018-02-08 | Outpatient (CLI) | payer MEDICARE ==
--- NOTE | 2018-02-09 13:04 | WOMENS IMAGING REPORT ---
EXAM DESCRIPTION: 3D SCREENING MAMMO RIGHT COMPLETED DATE/TIME: 02/08/2018 2:12 pm REASON FOR STUDY: RIGHT SCREENING MAMMO 3D /Z12.31 Z12.31 ENCNTR SCREEN MAMMOGRAM FOR MALIGNANT MICHELLE PLASM OF JONATAN COMPARISON: [id number] TECHNIQUE: Standard craniocaudal and mediolateral oblique views of the breast recorded using digital acquisition and breast tomosynthesis. LIMITATIONS: None. FINDINGS: BREAST: right Findings present which are benign by mammographic criteria. No suspicious masses, calcifications or a rchitectural distortion. Pertinent benign findings: Stable calcifications. Read with the assistance of CAD. .[facility] - R2 Cenova Version 1.3 .[facility] Imaging - R2 Cenova Version 1.3 .[facility] Imaging - R2 Cenova Version 2.4 .[facility] - R2 Cenova Version 2.4 .[facility] - R2 Coloring Room Man Version 9.2 Benign mammographic findings may include one or more of the following: Smooth masses, popcorn/rim/co arse calcifications, asymmetries, post-procedure changes, and lesions with long-standing stability. IMPRESSION: NORMAL MAMMOGRAM. BIRADS 2. BREAST DENSITY: b. There are scattered areas of fibroglandular density. BIRAD: 2 Benign Finding(s) RECOMMENDATION: RECOMMENDATION: ROUTINE SCREENING. COMMENT: The patient has been notified of the results by letter per SA requirements. Additional no tification policies are in place for contacting patient with suspicious or incomplete findings. Quality ID #[id number]: The [employer] recommends an annual screening mammogram for women aged 40 years or over. This facility utilizes a reminder system to ensure that all patients receive reminder letters, and/or direct phone calls for appointments. This includes reminders for routine scr eening mammograms, diagnostic mammograms, or other Breast Imaging Interventions when appropriate. Th is patient will be placed in the appropriate reminder system. The [employer] (ACR) has developed recommendations for screening MRI of the breast s in certain patient populations, to be used in conjunction with mammography. Breast MRI surveillance may be appropriate for women with more than 20% lifetime risk of developing breast cancer as determi yuko by genetic testing, significant family history of the disease, or history of mantle radiation for Hodgkins Disease. ACR Practice Guidelines 2008. DBT Technology DBT is a type of tomographic mammography. With conventional mammography, overlapping breast tissue ma y make lesions difficult to detect, even with good compression. DBT uses an x-ray tube that rotates a round the breast, taking images at different angles. These images are then combined to create thin sl ices of the breast that the radiologist can view as a 3D reconstruction. The IN[employer]BI unit can perform full-field digital mammograms (2D imaging); or DBT (3D imaging); or both, in a combination mode that quickly performs both the mammogram and the tomosynthesis scan while the breast is still compressed. PQRS 6045F: Fluoroscopic imaging is not utilized for breast tomosynthesis. TECHNICAL DOCUMENTATION: FINDING NUMBER: (1) ASSESSMENT: (1) JOB ID: [id number] [employer]- All Rights Reserved Reading location - IP/workstation name: [email or web address]
== END ==
LOC: WI 13:50
PROVIDERS: ATTEND Internal Medicine
DX: Z12.31 Encounter for screening mammogram for malignant neoplasm of breast (principal)

== ENCOUNTER 2018-03-15 20:38 | Emergency (ER) | payer MEDICARE ==
--- NOTE | 2018-03-15 21:11 | ER Document Report ---
ED Medical Screen (RME) - General Chief Complaint: Psych Problem Stated Complaint: PSYCH PROBLEM Time Seen by Provider: 03/15/18 21:09 Mode of Arrival: Ambulatory Information source: Relative Notes: Patient is a 72-year-old female with Alzheimer's who is presenting today with her daughter bringing her stating that she has not been asleep in 30 hours and will not stop trying to escape the house. Patient is not combative in anyway. Daughter states that she has had a urinary tract infection before that caused the symptoms. Patient tells me that she has no sick symptoms. Patient's usually cares for her at their home but he is in the hospital at this time. TRAVEL OUTSIDE OF THE [place] IN LAST 30 DAYS: No - Related Data Allergies/Adverse Reactions: codeine [Codeine] Adverse Reaction (Intermediate, Verified 07/22/17 09:37) Nausea Past Medical History - General Information source: Relative - Past Medical History Cardiac Medical History: Reports: Hx Hypercholesterolemia, Hx Hypertension Denies: Hx Coronary Artery Disease, Hx Heart Attack Pulmonary Medical History: Reports: Hx Pneumonia - no hospitalization Denies: Hx Asthma, Hx Bronchitis, Hx COPD, Hx Tuberculosis Neurological Medical History: Denies: Hx Cerebrovascular Accident, Hx Seizures Endocrine Medical History: Reports: Hx Diabetes Mellitus Type 2 Renal/ Medical History: Denies: Hx Peritoneal Dialysis Malignancy Medical History: Reports: Hx Breast Cancer - Left GI Medical History: Reports: Hx Gastroesophageal Reflux Disease, Hx Colonoscopy Musculoskeltal Medical History: Reports Hx Arthritis Past Surgical History: Reports: Hx Hysterectomy, Hx Mastectomy, Other - Cataract. Denies: Hx Pacemaker - Immunizations Hx Diphtheria, Pertussis, Tetanus Vaccination: Yes - 2005 Review of Systems - Review of Systems Neurological/Psychological: See HPI Physical Exam - Vital signs Vitals: Temp Pulse Resp BP Pulse Ox 98.2 F 109 H 20 165/84 H 97 03/15/18 20:44 03/15/18 20:44 03/15/18 20:44 03/15/18 20:44 03/15/18 20:44 - Notes Notes: General: NAD Lungs: CTAB Course - Vital Signs Vital signs: Temp Pulse Resp BP Pulse Ox 98.2 F 109 H 20 165/84 H 97 03/15/18 20:44 03/15/18 20:44 03/15/18 20:44 03/15/18 20:44 03/15/18 20:44 Doctor's Discharge - Discharge Referrals: RUBY BUTTREFIELD MD [Primary Care Provider] - Follow up as needed
[2018-03-15 22:38] LABS: ABSOLUTE EOSINOPHILS # (AUTO) 0.2 10^3/uL (0.0-0.6); ABSOLUTE LYMPHOCYTES (AUTO) 0.8 10^3/uL (0.5-4.7); ABSOLUTE MONOCYTES (AUTO) 0.4 10^3/uL (0.1-1.4); ABSOLUTE NEUT (AUTO) 3.2 10^3/uL (1.7-8.2); BASOPHILS % (AUTO) 0.9 % (0-2); MONOCYTES % (AUTO) 7.8 % (3-13); TOTAL CELLS COUNTED % (AUTO) 100 %; WHITE BLOOD COUNT 4.6 10^3/uL (4.0-10.5)
[2018-03-15 22:42] LABS: APPEARANCE,URINE SLIGHTLY-CLOUDY; BILIRUBIN,URINE NEGATIVE (NEGATIVE); COLOR,URINE STRAW; GLUCOSE, URINE >=500 mg/dL (NEGATIVE); KETONES,URINE NEGATIVE (NEGATIVE); LEUKOCYTE ESTERASE,URINE NEGATIVE (NEGATIVE); NITRITE,URINE NEGATIVE (NEGATIVE); PROTEIN,URINE NEGATIVE (NEGATIVE); URINE SPECIFIC GRAVITY 1.012; UROBILINOGEN,URINE NEGATIVE mg/dL (<2.0)
[2018-03-15 22:45] LABS: EOSINOPHILS % (AUTO) 5.1 % (0-6); HEMATOCRIT 33.4 % (36.0-47.0); HEMOGLOBIN 11.3 g/dL (12.0-15.5); LYMPHOCYTES % (AUTO) 16.9 % (13-45); MEAN CORPUSCULAR HEMOGLOBIN 29.9 pg (27.0-33.4); MEAN CORPUSCULAR HGB CONC 33.7 g/dL (32.0-36.0); MEAN CORPUSCULAR VOLUME 89 fl (80-97); PLATELET COUNT 171 10^3/uL (150-450); RED BLOOD COUNT 3.77 10^6/uL (3.72-5.28); RED CELL DISTRIBUTION WIDTH 14.5 % (11.5-14.0); SEGMENTED NEUTROPHILS % (AUTO) 69.3 % (42-78)
--- NOTE | 2018-03-15 22:49 | RADIOLOGY REPORT (SQ) ---
PROCEDURE: XR CHEST 1 VIEW HISTORY: ams, alzheimers, hx pneumonia COMPARISON: None available at present TECHNIQUE: Single projection of the chest was done. FINDINGS: Atherosclerotic changes are seen in the thoracic aorta. There is a small hiatal hernia . There are no discrete airspace infiltrates, pneumothoraces or pleural effusions. The pulmonary vascularity is normal. The cardiomediastinal silhouette is otherwise unremarkable. IMPRESSION: There is no acute pleural-parenchymal process seen in the imaged lung lynch. Location of Interpretation: [facility]
[2018-03-15 23:06] LABS: ALANINE AMINOTRANSFERASE 11 U/L (9-52); ALBUMIN 4.2 g/dL (3.5-5.0); ALKALINE PHOSPHATASE 71 U/L (38-126); ANION GAP 12 (5-19); ASPARTATE AMINO TRANSFERASE 25 U/L (14-36); BILIRUBIN,DIRECT 0.2 mg/dL (0.0-0.4); BILIRUBIN,TOTAL 0.2 mg/dL (0.2-1.3); BLOOD UREA NITROGEN 17 mg/dL (7-20); CALCIUM 10.4 mg/dL (8.4-10.2); CARBON DIOXIDE 30 mmol/L (22-30); CHLORIDE 104 mmol/L (98-107); GLUCOSE 212 mg/dL (75-110); POTASSIUM 4.4 mmol/L (3.6-5.0); SODIUM 145.9 mmol/L (137-145); TOTAL PROTEIN 6.8 g/dL (6.3-8.2)
[2018-03-15 23:09] LABS: ACETAMINOPHEN < 10 ug/mL (10-30); ALCOHOL < 10 mg/dL (NONE DETECTED)
[2018-03-16] MEDS ORDERED: RINGERS SOLUTION,LACTATED 1,000 ML IV ONE (00:34)
[2018-03-16 00:53] LABS: URINE AMPHETAMINES SCREEN NEGATIVE; URINE BARBITURATES SCREEN NEGATIVE; URINE BENZODIAZEPINES SCREEN NEGATIVE; URINE COCAINE SCREEN NEGATIVE; URINE MARIJUANA (THC) SCREEN NEGATIVE; URINE METHADONE SCREEN NEGATIVE; URINE PHENCYCLIDINE SCREEN NEGATIVE
--- NOTE | 2018-03-16 01:08 | ER Document Report ---
ED General - General Chief Complaint: Psych Problem Stated Complaint: PSYCH PROBLEM Time Seen by Provider: 03/15/18 21:09 Mode of Arrival: Ambulatory Information source: Patient, Relative, [facility], [facility] Records Cannot obtain history due to: Dementia Notes: 72-year-old female with Alzheimer's dementia, diabetes, hypertension, hyperlipidemia, coronary artery disease, remote history of breast cancer presents via private vehicle with her daughter who reports that her mother has not slept in over 2 days. She has been trying to get out of the house. She states that the family has been camping out throughout the house near the doors to make sure that the patient does not get out. Patient is alert and oriented x1 which is her reported baseline. Daughter states that with limited help she feels that she cannot take appropriate care of her mother by herself. She reports that the patient's is currently in the hospital for prostate cancer which she thinks has prompted her to be a little less cooperative. Patient is not combative. When asked she states "nothing hurts me I just want to go to sleep" TRAVEL OUTSIDE OF THE [place] IN LAST 30 DAYS: No - HPI Onset: Other Onset/Duration: Persistent, Worse Quality of pain: No pain - Related Data Allergies/Adverse Reactions: codeine [Codeine] Adverse Reaction (Intermediate, Verified 07/22/17 09:37) Nausea Past Medical History - General Information source: Relative, [facility], LAT[facility] Records - Social History Smoking Status: Unknown if Ever Smoked Frequency of alcohol use: None Drug Abuse: None Lives with: Family Family History: Reviewed & Not Pertinent Patient has suicidal ideation: No Patient has homicidal ideation: No - Past Medical History Cardiac Medical History: Reports: Hx Hypercholesterolemia, Hx Hypertension Denies: Hx Coronary Artery Disease, Hx Heart Attack Pulmonary Medical History: Reports: Hx Pneumonia - no hospitalization Denies: Hx Asthma, Hx Bronchitis, Hx COPD, Hx Tuberculosis Neurological Medical History: Denies: Hx Cerebrovascular Accident, Hx Seizures Endocrine Medical History: Reports: Hx Diabetes Mellitus Type 2 Renal/ Medical History: Denies: Hx Peritoneal Dialysis Malignancy Medical History: Reports: Hx Breast Cancer - Left GI Medical History: Reports: Hx Gastroesophageal Reflux Disease, Hx Colonoscopy Musculoskeletal Medical History: Reports Hx Arthritis Past Surgical History: Reports: Hx Hysterectomy, Hx Mastectomy, Other - Cataract. Denies: Hx Pacemaker - Immunizations Hx Diphtheria, Pertussis, Tetanus Vaccination: Yes - 2005 Hx Pneumococcal Vaccination: 01/30/12 Review of Systems - Review of Systems -: Yes ROS unobtainable due to patient's medical condition Physical Exam - Vital signs Vitals: Temp Pulse Resp BP Pulse Ox 98.2 F 109 H 20 165/84 H 97 03/15/18 20:44 03/15/18 20:44 03/15/18 20:44 03/15/18 20:44 03/15/18 20:44 Interpretation: Hypertensive, Tachycardic. No: Febrile - Notes Notes: PHYSICAL EXAMINATION: GENERAL: Well-appearing, well-nourished and in no acute distress. HEAD: Atraumatic, normocephalic. EYES: Pupils equal round and reactive to light, extraocular movements intact, conjunctiva are normal. ENT: Nares patent, oropharynx clear without exudates. Moist mucous membranes. NECK: Normal range of motion, supple without lymphadenopathy LUNGS: Breath sounds clear to auscultation bilaterally and equal. No wheezes rales or rhonchi. HEART: Regular rate and rhythm without murmurs ABDOMEN: Soft, nontender, nondistended abdomen. No guarding, no rebound. No masses appreciated. Female : deferred Musculoskeletal: Normal range of motion, no pitting or edema. No cyanosis. NEUROLOGICAL: Cranial nerves grossly intact. Normal speech, normal gait. Normal sensory, motor exams. AO x1 PSYCH: Normal mood, normal affect. SKIN: Warm, Dry, normal turgor, no rashes or lesions noted. Course - Re-evaluation Re-evalutation: Laboratory 03/15/18 03/15/18 03/15/18 21:54 21:54 21:54 WBC 4.6 RBC 3.77 Hgb 11.3 L Hct 33.4 L MCV 89 MCH 29.9 MCHC 33.7 RDW 14.5 H Plt Count 171 Seg Neutrophils % 69.3 Lymphocytes % 16.9 Monocytes % 7.8 Eosinophils % 5.1 Basophils % 0.9 Absolute Neutrophils 3.2 Absolute Lymphocytes 0.8 Absolute Monocytes 0.4 Absolute Eosinophils 0.2 Absolute Basophils 0.0 Sodium 145.9 H Potassium 4.4 Chloride 104 Carbon Dioxide 30 Anion Gap 12 BUN 17 Creatinine 1.28 H Est GFR ( Amer) 50 L Est GFR (Non-Af Amer) 41 L Glucose 212 H Calcium 10.4 H Total Bilirubin 0.2 Direct Bilirubin 0.2 Neonat Total Bilirubin Not Reportable Neonat Direct Bilirubin Not Reportable Neonat Indirect Bili Not Reportable AST 25 ALT 11 Alkaline Phosphatase 71 Total Protein 6.8 Albumin 4.2 Urine Color STRAW Urine Appearance SLIGHTLY-CLOUDY Urine pH 5.0 Ur Specific [place] 1.012 Urine Protein NEGATIVE Urine Glucose (UA) >=500 H Urine Ketones NEGATIVE Urine Blood NEGATIVE Urine Nitrite NEGATIVE Urine Bilirubin NEGATIVE Urine Urobilinogen NEGATIVE Ur Leukocyte Esterase NEGATIVE Urine WBC (Auto) 2 Urine RBC (Auto) 8 Urine Bacteria (Auto) 1+ Squamous Epi Cells Auto 1 Urine Mucus (Auto) RARE Urine Ascorbic Acid NEGATIVE Urine Opiates Screen Urine Methadone Screen Acetaminophen < 10 L Ur Barbiturates Screen Ur Phencyclidine Scrn Ur Amphetamines Screen U Benzodiazepines Scrn Urine Cocaine Screen U Marijuana (THC) Screen Serum Alcohol < 10 03/15/18 21:54 WBC RBC Hgb Hct MCV MCH MCHC RDW Plt Count Seg Neutrophils % Lymphocytes % Monocytes % Eosinophils % Basophils % Absolute Neutrophils Absolute Lymphocytes Absolute Monocytes Absolute Eosinophils Absolute Basophils Sodium Potassium Chloride Carbon Dioxide Anion Gap BUN Creatinine Est GFR ( Amer) Est GFR (Non-Af Amer) Glucose Calcium Total Bilirubin Direct Bilirubin Neonat Total Bilirubin Neonat Direct Bilirubin Neonat Indirect Bili AST ALT Alkaline Phosphatase Total Protein Albumin Urine Color Urine Appearance Urine pH Ur Specific [place] Urine Protein Urine Glucose (UA) Urine Ketones Urine Blood Urine Nitrite Urine Bilirubin Urine Urobilinogen Ur Leukocyte Esterase Urine WBC (Auto) Urine RBC (Auto) Urine Bacteria (Auto) Squamous Epi Cells Auto Urine Mucus (Auto) Urine Ascorbic Acid Urine Opiates Screen NEGATIVE Urine Methadone Screen NEGATIVE Acetaminophen Ur Barbiturates Screen NEGATIVE Ur Phencyclidine Scrn NEGATIVE Ur Amphetamines Screen NEGATIVE U Benzodiazepines Scrn NEGATIVE Urine Cocaine Screen NEGATIVE U Marijuana (THC) Screen NEGATIVE Serum Alcohol 03/16/18 03:31 72-year-old female with Alzheimer's dementia presents with her daughter who is concerned for worsening confusion. Daughter reports that for the last 2 days the patient has not slept. She has been persistently trying to get out of the house. It has gotten to the point where family members are sleeping near the doors to assure that the patient does not get out. Patient's baseline is AO x1. Her daughter is having a difficult time taking care of her mother. The patient's is currently hospitalized with prostate cancer. Vital signs stable upon arrival. Patient is alert, awake and oriented to herself. She is pleasant, cooperative. Daughter will return in the morning to speak to psych team regarding options. She is unsure whether or not she wants to place her mother in a nursing facility at this time. She does not know her mother's current medications but states that she will attempt to bring them in tomorrow morning. Patient cleared for psychiatric evaluation. 03/16/18 03:32 Chest X-Ray 03/15/18 21:12 IMPRESSION: There is no acute pleural-parenchymal process seen in the imaged lung lynch. Location of Interpretation: [facility] Temp Pulse Resp BP Pulse Ox 98.2 F 109 H 20 165/84 H 97 03/15/18 20:44 03/15/18 20:44 03/15/18 20:44 03/15/18 20:44 03/15/18 20:44 - Vital Signs Vital signs: Temp Pulse Resp BP Pulse Ox 98.2 F 109 H 20 165/84 H 97 03/15/18 20:44 03/15/18 20:44 03/15/18 20:44 03/15/18 20:44 03/15/18 20:44 - Laboratory Result Diagrams: 03/15/18 21:54 03/15/18 21:54 Laboratory results interpreted by me: 03/15/18 03/15/18 03/15/18 21:54 21:54 21:54 Hgb 11.3 L Hct 33.4 L RDW 14.5 H Sodium 145.9 H Creatinine 1.28 H Est GFR ( Amer) 50 L Est GFR (Non-Af Amer) 41 L Glucose 212 H Calcium 10.4 H Urine Glucose (UA) >=500 H Acetaminophen < 10 L - Diagnostic Test Radiology reviewed: Image reviewed, Reports reviewed Discharge - Discharge Clinical Impression: Alzheimer's dementia Qualifiers: Alzheimer's disease onset: unspecified onset Dementia behavioral disturbance: with behavioral disturbance Qualified Code(s): G30.9 - Alzheimer's disease, unspecified; F02.81 - Dementia in other diseases classified elsewhere with behavioral disturbance; F02.81 - Dementia in other diseases classified elsewhere with behavioral disturbance; F02.81 - Dementia in other diseases classified elsewhere with behavioral disturbance Hypertension Qualifiers: Hypertension type: unspecified Qualified Code(s): I10 - Essential (primary) hypertension Condition: Good Instructions: Dementia ([facility]) Forms: Elevated Blood Pressure Referrals: RUBY BUTTERFIELD MD [Primary Care Provider] - Follow up as needed
--- NOTE | 2018-03-16 09:34 | ER Document Report ---
Doctor's Note Notes: 03/16/18 09:32 Rounds: Chart reviewed and patient interviewed. Patient says that she is doing much better. Ate breakfast. Freshened up. Says she is feeling fine. Vital signs are all essentially normal. All lab studies have been essentially normal , as well. Patient's primary problem seems to be advanced stage Alzheimer. Discharge planning has been recruited to help in a disposition on this patient. Patient appears to be medically stable for transfer or discharge. Jef Caraballo MD
--- NOTE | 2018-03-16 14:11 | PSYCHOLOGICAL NOTE ---
Psych Note - Psych Note Date seen by psych provider: 03/16/18 Time seen by psych provider: 07:00 - Chart review at 0700. Collateral from Attending Nurse at 0750. Observation/Interaction with patient and Collateral from daughter [id number]. Psych Note: Reason for Consult: Alzheimer's/Dementia Contact Permissions: Daughter Ayana Sanchez [phone] Patient is a 72 year old female who presented to the ED yesterday via daughter for Alzheimer's/Dementia, not sleeping in 30+ hours, trying to escape the house so much that family had to stay awake to keep watch and typically is assisted living care manager for patient but he is medically admitted to the hospital. Attending nurse identified patient is incontinent, can interact appropriately, is cooperative and doesn't remember a lot. Daughter came to visit. She denied MH history with the exception of some depression. She denied previous MH hospitalization. She stated she needs resources to help care for her mother. Chart review revealed patient has been seen in the ED 4 times now for AMS related issues this year (current, 07/22/17, 05/20/17, 05/19/17). her Head CT dated 07/22/17 completed secondary to AMS and evaluation of bleeding tumor had the following findings: extensive white matter low attenuation in the bifrontal and biparietal regions and deep periventricular white matter (similar to findings from 11/25/12 study) most likely represents advanced white matter disease, chronic small vessel disease. Overall impression was: extensive chronic white matter disease similar to 11/25/12 CT Brain. This language is suggestive of neurodegenerative processes and consistent with Alzheimer's/ dementia diagnosis. Attending nurse reached out to [facility]. Mental health or dementia related medications include: Aricept 10MG QD last refill 12/29/17. Gabapentin 300MG TID last refill 03/14/18. Effexor 100MG BID last refill 02/05/18 (was 100MG QD 11/2016). PCM is Dr. Ayala. Display Screen Fabricator is Dr. Ashish Villela. Diagnosis: 331.0 + 294.10 (G30.9 + F02.80) Alzheimer's Disease + Major Neurocognitive Disorder due to Alzheimer's Disease, Probable, Without Behavioral Disturbances by History Medication recommendations made by the psychiatric medical provider, Dr. Jeni MD., includes: referencing home medications provided by [facility] Decrease Effexor to 75MG daily for 5 days for titrating down then Decrease Effexor to 37.5MG daily for 5 days for titrating down then Discontinue Add Depakote 250MG twice a day for mood stabilization Add Buspar 10MG twice a day for anxiety/depression/sleep Add Risperdal 0.25MG twice a day as needed if there are behaviors (otherwise avoid use) Discontinue Aricept 10MG daily for memory loss and cognition Impression/Plan: Patient is cleared from acute psychiatric services. She has documented Alzheimer's/Dementia which is a medical condition. Have provided medication recommendations to assist in managing behaviors associated with Alzheimer's/Dementia that often mimic mental health symptoms. This clinician reached out to ED SW/Case Management for consultation. Consulted with Dr. Golden regarding the management and care of patient. ED Physician in agreement with recommendations.
[2018-03-16] MEDS ORDERED: RISPERIDONE 0.25 MG TABLET PO PRN (16:25)
[2018-03-16] MEDS: BUSPIRONE HCL 10 MG TABLET PO SCH (17:28)
[2018-03-16] MEDS: DIVALPROEX SODIUM 250 MG TAB.SR.24H PO SCH (17:28)
[2018-03-16] MEDS: VENLAFAXINE HCL 75 MG TABLET PO SCH (18:06)
[2018-03-17] MEDS ORDERED: ACETAMINOPHEN 325 MG TABLET PO ONE (04:20)
[2018-03-17 04:47] VITALS: BP 142/67
--- NOTE | 2018-03-17 09:48 | ER Document Report ---
Doctor's Note Notes: 03/17/18 09:48 Rounds: Chart reviewed and patient interviewed. Patient has no complaints. Vital signs are all essentially normal. Lab studies have been likewise essentially normal. Patient is a social hold awaiting further disposition. Patient appears to be medically stable for discharge or transfer. Jef Caraballo MD
[2018-03-17] MEDS: VENLAFAXINE HCL 75 MG TABLET PO SCH (11:00)
[2018-03-17] MEDS: BUSPIRONE HCL 10 MG TABLET PO SCH (11:00)
[2018-03-17] MEDS: DIVALPROEX SODIUM 250 MG TAB.SR.24H PO SCH (11:00)
== END 2018-03-17 14:39 | disposition home or self-care (01) ==
LOC: ER 20:38
DX: G30.9 Alzheimer's disease, unspecified (principal); F02.81 Dementia in other diseases classified elsewhere, unspecified severity, with behavioral disturbance; F32.9 Major depressive disorder, single episode, unspecified; Z79.899 Other long term (current) drug therapy; I10 Essential (primary) hypertension; E11.9 Type 2 diabetes mellitus without complications; I25.10 Atherosclerotic heart disease of native coronary artery without angina pectoris; Z85.3 Personal history of malignant neoplasm of breast
CPT/HCPCS: 99285; 36415; 80307 ×3; 85025; 80053; 81001; 71045; A9270 ×7; J7120; J3490

== ENCOUNTER 2018-06-17 21:20 | Emergency (ER) | payer MEDICARE ==
[2018-06-17 23:15] LABS: ABSOLUTE LYMPHOCYTES (AUTO) 0.5 10^3/uL (0.5-4.7); ABSOLUTE MONOCYTES (AUTO) 0.3 10^3/uL (0.1-1.4); ABSOLUTE NEUT (AUTO) 5.5 10^3/uL (1.7-8.2); BASOPHILS % (AUTO) 0.5 % (0-2); HEMATOCRIT 33.7 % (36.0-47.0); HEMOGLOBIN 11.7 g/dL (12.0-15.5); LYMPHOCYTES % (AUTO) 7.3 % (13-45); MEAN CORPUSCULAR HEMOGLOBIN 29.8 pg (27.0-33.4); MEAN CORPUSCULAR HGB CONC 34.6 g/dL (32.0-36.0); MEAN CORPUSCULAR VOLUME 86 fl (80-97); MONOCYTES % (AUTO) 4.1 % (3-13); PLATELET COUNT 177 10^3/uL (150-450); RED BLOOD COUNT 3.92 10^6/uL (3.72-5.28); RED CELL DISTRIBUTION WIDTH 14.3 % (11.5-14.0); SEGMENTED NEUTROPHILS % (AUTO) 88.1 % (42-78); TOTAL CELLS COUNTED % (AUTO) 100 %; WHITE BLOOD COUNT 6.2 10^3/uL (4.0-10.5)
[2018-06-17 23:28] LABS: ALANINE AMINOTRANSFERASE 20 U/L (9-52); ALBUMIN 4.6 g/dL (3.5-5.0); ALKALINE PHOSPHATASE 64 U/L (38-126); ANION GAP 15 (5-19); ASPARTATE AMINO TRANSFERASE 33 U/L (14-36); BILIRUBIN,DIRECT 0.3 mg/dL (0.0-0.4); BILIRUBIN,TOTAL 0.9 mg/dL (0.2-1.3); BLOOD UREA NITROGEN 17 mg/dL (7-20); CALCIUM 10.9 mg/dL (8.4-10.2); CARBON DIOXIDE 26 mmol/L (22-30); CHLORIDE 102 mmol/L (98-107); GLUCOSE 125 mg/dL (75-110); POTASSIUM 3.7 mmol/L (3.6-5.0); SODIUM 142.8 mmol/L (137-145); TOTAL PROTEIN 6.9 g/dL (6.3-8.2)
[2018-06-18 00:36] LABS: APPEARANCE,URINE CLEAR; BILIRUBIN,URINE NEGATIVE (NEGATIVE); COLOR,URINE YELLOW; GLUCOSE, URINE NEGATIVE (NEGATIVE); KETONES,URINE 20 mg/dL (NEGATIVE); LEUKOCYTE ESTERASE,URINE NEGATIVE (NEGATIVE); NITRITE,URINE NEGATIVE (NEGATIVE); PROTEIN,URINE NEGATIVE (NEGATIVE); URINE SPECIFIC GRAVITY 1.014; UROBILINOGEN,URINE NEGATIVE mg/dL (<2.0)
--- NOTE | 2018-06-18 02:42 | ER Document Report ---
ED General - General Chief Complaint: Altered Mental Status Stated Complaint: ALTERED MENTAL STATUS Time Seen by Provider: 06/17/18 22:30 Primary Care Provider: RUBY BUTTERFIELD MD [Primary Care Provider] - Follow up as needed Cannot obtain history due to: Dementia Notes: Patient is a 72-year-old female with a past medical history of dementia, hypertension, hyperlipidemia, presents with her daughter due to concerns of relatively rapid deterioration of her cognitive functions as well as refusal to eat or take medications. Daughter states that ever since the end of March when the patient's she has been increasingly demented, soiling herself more often, unable to provide any of her self-care at this point. Daughter states that she became increasingly concerned within the past 5 days when the patient progressively began eating less and less and has effectively refused to eat for the past 48 hours. She also notes that the patient's gait instability have also gotten progressively worse over the past several weeks. The patient has been following with the primary care physician and family is in conversations about long-term care goals and care setting yolanda ns. Nothing seems to improve or worsen the patient's symptoms. Prior to the past several months the patient did have mild dementia but daughter notes that it is much worse within these past several weeks. History is otherwise limited secondary to the degree of the patient's dementia. TRAVEL OUTSIDE OF THE [place] IN LAST 30 DAYS: No - Related Data Allergies/Adverse Reactions: codeine [Codeine] Adverse Reaction (Intermediate, Verified 06/17/18 21:32) Nausea Past Medical History - General Information source: Relative - Social History Smoking Status: Never Smoker Frequency of alcohol use: None Drug Abuse: None Lives with: Spouse/Significant other Family History: Reviewed & Not Pertinent Patient has suicidal ideation: No Patient has homicidal ideation: No - Past Medical History Cardiac Medical History: Reports: Hx Hypercholesterolemia, Hx Hypertension Denies: Hx Coronary Artery Disease, Hx Heart Attack Pulmonary Medical History: Reports: Hx Pneumonia - no hospitalization Denies: Hx Asthma, Hx Bronchitis, Hx COPD, Hx Tuberculosis Neurological Medical History: Denies: Hx Cerebrovascular Accident, Hx Seizures Endocrine Medical History: Reports: Hx Diabetes Mellitus Type 2 Renal/ Medical History: Denies: Hx Peritoneal Dialysis Malignancy Medical History: Reports: Hx Breast Cancer - Left GI Medical History: Reports: Hx Gastroesophageal Reflux Disease, Hx Colonoscopy Musculoskeletal Medical History: Reports Hx Arthritis Past Surgical History: Reports: Hx Hysterectomy, Hx Mastectomy, Other - Cataract. Denies: Hx Pacemaker - Immunizations Hx Diphtheria, Pertussis, Tetanus Vaccination: Yes - 2005 Hx Pneumococcal Vaccination: 01/30/12 Review of Systems - Review of Systems -: Yes ROS unobtainable due to patient's medical condition Physical Exam - Vital signs Vitals: Temp Pulse Resp BP Pulse Ox 97.9 F 104 H 16 150/89 H 100 06/17/18 21:48 06/17/18 21:48 06/17/18 21:48 06/17/18 21:48 06/17/18 21:48 Interpretation: Hypertensive, Tachycardic Notes: PHYSICAL EXAMINATION: GENERAL: Somewhat disheveled, does not speak much, does not appear oriented to anything that is happening in the room. HEAD: Atraumatic, normocephalic. EYES: Pupils equal round and reactive to light, extraocular movements intact, sclera anicteric, conjunctiva are normal. ENT: nares patent, oropharynx clear without exudates. Moderately dry mucous membranes. NECK: Normal range of motion, supple without lymphadenopathy LUNGS: Breath sounds clear to auscultation bilaterally and equal. No wheezes rales or rhonchi. HEART: Regular rate and rhythm without murmurs ABDOMEN: Soft, nontender, normoactive bowel sounds. No guarding, no rebound. No masses appreciated. EXTREMITIES: Normal range of motion, no pitting or edema. No cyanosis. NEUROLOGICAL: No focal neurological deficits. Moves all extremities spontaneously and on command. PSYCH: Alert, oriented only to person SKIN: Warm, Dry, normal turgor, no rashes or lesions noted. Course - Re-evaluation Re-evalutation: 06/18/18 02:41 Patient presents with familial concerns of 2-3 months of rapidly progressive decline in her overall cognitive status, in the past 2 weeks has begun to refuse medications, has not eaten in the last 2 days. Overall picture appears very consistent with progressive dementia with associated behavioral disturbances. Labs are unremarkable without any obvious reversible cause. Patient's vitals are otherwise within acceptable limits. I had a long conversation with the patient's daughter at the bedside about the likely progressive nature of her presentation, the need to plan for possible care plans with primary care physician as well as goals of care in the long-term. Patient's exam otherwise unremarkable. At this time will discharge with return precautions and follow-up recommendations. Verbal discharge instructions given a the bedside and opportunity for questions given. Medication warnings reviewed. Family is in agreement with this plan and has verbalized understanding of return precautions and the need for primary care follow-up in the next 24-72 hours. - Vital Signs Vital signs: Temp Pulse Resp BP Pulse Ox 97.9 F 104 H 16 150/89 H 98 06/17/18 21:48 06/17/18 21:48 06/17/18 21:48 06/17/18 21:48 06/17/18 23:11 - Laboratory Result Diagrams: 06/17/18 23:05 06/17/18 23:05 Laboratory results interpreted by me: 06/17/18 06/17/18 06/17/18 22:29 23:05 23:05 Hgb 11.7 L Hct 33.7 L RDW 14.3 H Seg Neutrophils % 88.1 H Lymphocytes % 7.3 L Creatinine 1.28 H Est GFR ( Amer) 50 L Est GFR (Non-Af Amer) 41 L Glucose 125 H POC Glucose 127 H Calcium 10.9 H Urine Ketones 06/17/18 23:59 Hgb Hct RDW Seg Neutrophils % Lymphocytes % Creatinine Est GFR ( Amer) Est GFR (Non-Af Amer) Glucose POC Glucose Calcium Urine Ketones 20 H - EKG Interpretation by Me Additional EKG results interpreted by me: 06/18/18 03:02 Sinus tachycardia, rate 94. No ST elevations or depressions. QTC is 471. Discharge - Discharge Clinical Impression: Anorexia, Refusal of medication Dementia Qualifiers: Dementia type: Alzheimer's disease Alzheimer's disease onset: early-onset Dementia behavioral disturbance: with behavioral disturbance Qualified Code(s): G30.0 - Alzheimer's disease with early onset Condition: Stable Disposition: HOME, SELF-CARE Additional Instructions: Your mother symptoms appear to be consistent with progressive dementia. Her labs are otherwise normal. I strongly encourage you to discuss with her primary care doctor a long-term care plan and specific goals of care. Referrals: RUBY BUTTERFIELD MD [Primary Care Provider] - Follow up as needed
[2018-06-18 03:55] VITALS: BP 159/82
--- NOTE | 2018-06-18 22:09 | EKG REPORT ---
SEVERITY:- ABNORMAL ECG - CONSIDER LEFT VENTRICULAR HYPERTROPHY SINUS RHYTHM : Confirmed by: Elmer White 18-Jun-2018 22:08:13
== END 2018-06-18 02:05 | disposition home or self-care (01) ==
LOC: ER 21:20
DX: R63.0 Anorexia (principal); G30.0 Alzheimer's disease with early onset; Z91.14 Patient's other noncompliance with medication regimen; I10 Essential (primary) hypertension; E78.5 Hyperlipidemia, unspecified; E78.00 Pure hypercholesterolemia, unspecified; E11.9 Type 2 diabetes mellitus without complications; Z88.6 Allergy status to analgesic agent; Z90.710 Acquired absence of both cervix and uterus
CPT/HCPCS: 36415; 51701; 80053; 81001; 82962; 85025; 93005; 93010; 99285

== ENCOUNTER 2018-06-25 16:07 | Emergency (ER) | payer MEDICARE ==
[2018-06-25 17:22] LABS: ABSOLUTE LYMPHOCYTES (AUTO) 0.6 10^3/uL (0.5-4.7); ABSOLUTE MONOCYTES (AUTO) 0.4 10^3/uL (0.1-1.4); ABSOLUTE NEUT (AUTO) 4.3 10^3/uL (1.7-8.2); BASOPHILS % (AUTO) 0.8 % (0-2); EOSINOPHILS % (AUTO) 0.5 % (0-6); HEMATOCRIT 37.9 % (36.0-47.0); LYMPHOCYTES % (AUTO) 11.3 % (13-45); MEAN CORPUSCULAR HEMOGLOBIN 29.5 pg (27.0-33.4); MEAN CORPUSCULAR HGB CONC 34.4 g/dL (32.0-36.0); MEAN CORPUSCULAR VOLUME 86 fl (80-97); MONOCYTES % (AUTO) 7.9 % (3-13); PLATELET COUNT 194 10^3/uL (150-450); RED BLOOD COUNT 4.41 10^6/uL (3.72-5.28); RED CELL DISTRIBUTION WIDTH 14.1 % (11.5-14.0); SEGMENTED NEUTROPHILS % (AUTO) 79.5 % (42-78); TOTAL CELLS COUNTED % (AUTO) 100 %; WHITE BLOOD COUNT 5.4 10^3/uL (4.0-10.5)
[2018-06-25 17:26] LABS: APPEARANCE,URINE SLIGHTLY-CLOUDY; BILIRUBIN,URINE NEGATIVE (NEGATIVE); COLOR,URINE YELLOW; GLUCOSE, URINE NEGATIVE (NEGATIVE); KETONES,URINE 20 mg/dL (NEGATIVE); LEUKOCYTE ESTERASE,URINE NEGATIVE (NEGATIVE); NITRITE,URINE NEGATIVE (NEGATIVE); PROTEIN,URINE NEGATIVE (NEGATIVE); URINE SPECIFIC GRAVITY 1.016; UROBILINOGEN,URINE NEGATIVE mg/dL (<2.0)
[2018-06-25] MEDS ORDERED: NORMAL SALINE 1000 ML 1,000 ML IV ONE (17:41)
[2018-06-25 17:57] LABS: ALANINE AMINOTRANSFERASE 10 U/L (9-52); ALBUMIN 4.3 g/dL (3.5-5.0); ALKALINE PHOSPHATASE 62 U/L (38-126); ANION GAP 14 (5-19); ASPARTATE AMINO TRANSFERASE 28 U/L (14-36); BILIRUBIN,DIRECT 0.3 mg/dL (0.0-0.4); BLOOD UREA NITROGEN 22 mg/dL (7-20); CALCIUM 10.9 mg/dL (8.4-10.2); CARBON DIOXIDE 26 mmol/L (22-30); CHLORIDE 101 mmol/L (98-107); CREATINE KINASE 66 U/L (30-135); GLUCOSE 115 mg/dL (75-110); POTASSIUM 3.8 mmol/L (3.6-5.0); SODIUM 140.6 mmol/L (137-145); TOTAL PROTEIN 6.8 g/dL (6.3-8.2)
--- NOTE | 2018-06-25 18:38 | RADIOLOGY REPORT (SQ) ---
EXAM DESCRIPTION: PELVIS AP COMPLETED DATE/TIME: 06/25/2018 6:20 pm REASON FOR STUDY: bruising, abrasions COMPARISON: None. NUMBER OF VIEWS: One view TECHNIQUE: AP Pelvis LIMITATIONS: None. FINDINGS: MINERALIZATION: Normal. HIPS: No acute fracture or dislocation. No worrisome bone lesions. PELVIS AND SACRUM: No acute fracture or dislocation. No worrisome bone lesions. PUBIS AND ISCHIUM: No acute fracture. LOWER LUMBAR SPINE: No significant findings as visualized. SOFT TISSUES: No findings. OTHER: No other significant finding. IMPRESSION: No fracture. COMMENT: Pelvic fractures are often occult on plain radiographs. If strong clinical suspicion for f racture, recommend CT or MR. TECHNICAL DOCUMENTATION: JOB ID: [id number]-72 2010 [employer]- All Rights Reserved Reading location - IP/workstation name: [email or web address]
--- NOTE | 2018-06-25 18:40 | RADIOLOGY REPORT (SQ) ---
EXAM DESCRIPTION: FEMUR RIGHT COMPLETED DATE/TIME: 06/25/2018 6:20 pm REASON FOR STUDY: abrasions, bruising, ams COMPARISON: None. NUMBER OF VIEWS: Two views. TECHNIQUE: Two radiographic images acquired of the right femur to include hip and knee in at least o ne projection. LIMITATIONS: None. FINDINGS: MINERALIZATION: Normal. BONES: No acute fracture. Mild tricompartmental arthrosis. . SOFT TISSUES: No radiopaque foreign body. OTHER: No other significant finding. IMPRESSION: No fracture identified.No radiopaque foreign body. TECHNICAL DOCUMENTATION: JOB ID: [id number] [place]-72 2010 [employer]- All Rights Reserved Reading location - IP/workstation name: [email or web address]
--- NOTE | 2018-06-25 18:41 | ER Document Report ---
ED Dizziness/Weakness - General Mode of Arrival: Medic Information source: Relative TRAVEL OUTSIDE OF THE [place] IN LAST 30 DAYS: No <LAKISHA AMBROSIO - Last Filed: 06/25/18 19:08> <EDENILSON RHODES - Last Filed: 06/25/18 20:03> - General Chief Complaint: Altered Mental Status Stated Complaint: ALTERED MENTAL STATUS Time Seen by Provider: 06/25/18 16:18 Primary Care Provider: MONICA ABBASI MD [Primary Care Provider] - Follow up as needed Notes: Patient is a 72-year old female with a history of dementia who presents to the ER today for the second time in 2 weeks for altered mental status. Daughter whom she lives with states that she is going in and out of consciousness, sometimes staring right through people or often to space and not answering for days at a time. Patient also was recently admitted for abnormal potassium and dehydration to a [facility] for the same symptoms and discharged in the same condition. Daughter denies that she is falling, hitting her head, has had any facial droop or weakness on one side or the other.` (LAKISHA AMBROSIO) - Related Data Allergies/Adverse Reactions: codeine [Codeine] Adverse Reaction (Intermediate, Verified 06/25/18 17:52) Nausea Past Medical History - General Information source: Relative - Social History Smoking Status: Unknown if Ever Smoked Family History: Reviewed & Not Pertinent Patient has suicidal ideation: No Patient has homicidal ideation: No - Past Medical History Cardiac Medical History: Reports: Hx Hypercholesterolemia, Hx Hypertension Denies: Hx Coronary Artery Disease, Hx Heart Attack Pulmonary Medical History: Reports: Hx Pneumonia - no hospitalization Denies: Hx Asthma, Hx Bronchitis, Hx COPD, Hx Tuberculosis Neurological Medical History: Denies: Hx Cerebrovascular Accident, Hx Seizures Endocrine Medical History: Reports: Hx Diabetes Mellitus Type 2 Renal/ Medical History: Denies: Hx Peritoneal Dialysis Malignancy Medical History: Reports: Hx Breast Cancer - Left GI Medical History: Reports: Hx Gastroesophageal Reflux Disease, Hx Colonoscopy Musculoskeletal Medical History: Reports Hx Arthritis Past Surgical History: Reports: Hx Hysterectomy, Hx Mastectomy - left, Other - Cataract. Denies: Hx Pacemaker - Immunizations Hx Diphtheria, Pertussis, Tetanus Vaccination: Yes - 2005 Hx Pneumococcal Vaccination: 01/30/12 <LAKISHA AMBROSIO - Last Filed: 06/25/18 19:08> Review of Systems - Review of Systems Constitutional: See HPI EENT: No symptoms reported Cardiovascular: No symptoms reported Respiratory: No symptoms reported Gastrointestinal: No symptoms reported Genitourinary: No symptoms reported Female Genitourinary: No symptoms reported Musculoskeletal: No symptoms reported Skin: No symptoms reported Hematologic/Lymphatic: No symptoms reported Neurological/Psychological: See HPI <LAKISHA AMBROSIO - Last Filed: 06/25/18 19:08> Physical Exam <LAKISHA AMBROSIO - Last Filed: 06/25/18 19:08> - Vital signs Vitals: BP Pulse Ox 132/91 H 97 06/25/18 16:13 06/25/18 16:13 - Notes Notes: PHYSICAL EXAMINATION: GENERAL: Asleep, demented, awakes easily, in no acute distress. HEAD: Atraumatic, normocephalic. EYES: Pupils equal round and reactive to light, extraocular movements intact, sclera anicteric, conjunctiva are normal. ENT: Airway patent NECK: Normal range of motion, supple without lymphadenopathy LUNGS: CTAB and equal. No wheezes rales or rhonchi. HEART: Regular rate and rhythm without murmurs ABDOMEN: Soft, no tenderness. No guarding, no rebound BACK: no vertebral tenderness, normal ROM GI/: no CVA tenderness EXTREMITIES: Pain with rolling in bed although she cannot tell us why, no pitting edema. No cyanosis. NEUROLOGICAL: Demented, will not really follow commands, otherwise cranial nerves grossly intact. Normal sensory/motor exams. PSYCH: Normal mood, normal affect. SKIN: Warm, Dry, chapped lips, otherwise normal turgor, abrasions and ecchymosis to the left femur, tender to palpation (ELLILAKISHA) Course - Laboratory Result Diagrams: 06/25/18 17:03 06/25/18 17:03 <ELLILAKISHA - Last Filed: 06/25/18 19:08> - Laboratory Result Diagrams: 06/25/18 17:03 06/25/18 17:03 <EDENILSON RHODES - Last Filed: 06/25/18 20:03> - Re-evaluation Re-evalutation: 06/25/18 18:56 Lab work unremarkable today, x-ray of the femur and pelvis on the right were obtained and negative due to seeing abrasions and ecchymosis and patient seeming to have pain with rolling in the bed, although daughter did not give me a story for any fall or injury. Patient is in no distress with stable vital signs, but will not take her medications per daughter. (LAKISHA AMBROSIO) 06/25/18 20:02 Patient signed out from Lakisha Ambrosio. CT head without contrast negative for any acute intracranial pathology. At this time patient is stable for discharge. Nurse will call patient's daughter. Vital signs stable at this time (EDENILSON RHODES) - Vital Signs Vital signs: Temp Pulse Resp BP Pulse Ox 17 132/92 H 96 06/25/18 18:01 06/25/18 18:01 06/25/18 18:01 - Laboratory Laboratory results interpreted by me: 06/25/18 06/25/18 06/25/18 17:03 17:03 17:03 RDW 14.1 H Seg Neutrophils % 79.5 H Lymphocytes % 11.3 L BUN 22 H Est GFR (Non-Af Amer) 49 L Glucose 115 H Calcium 10.9 H Urine Ketones 20 H Discharge <LAKISHA AMBROSIO - Last Filed: 06/25/18 19:08> <EDENILSON RHODES - Last Filed: 06/25/18 20:03> - Discharge Clinical Impression: Dementia Qualifiers: Dementia type: Alzheimer's disease Alzheimer's disease onset: unspecified onset Dementia behavioral disturbance: without behavioral disturbance Qualified Code(s): G30.9 - Alzheimer's disease, unspecified Condition: Stable Disposition: HOME, SELF-CARE Additional Instructions: Return immediately for any new or worsening symptoms. Follow up with primary care provider, call tomorrow to make followup appointment. Please follow-up with your primary care provider about long-term goals for dementia. Referrals: MONICA ABBASI MD [Primary Care Provider] - Follow up as needed
--- NOTE | 2018-06-25 18:45 | RADIOLOGY REPORT (SQ) ---
EXAM DESCRIPTION: CHEST SINGLE VIEW COMPLETED DATE/TIME: 06/25/2018 6:20 pm REASON FOR STUDY: ams COMPARISON: 03/15/2018 TECHNIQUE: Single frontal radiographic view of the chest acquired. NUMBER OF VIEWS: One view. LIMITATIONS: None. FINDINGS: LUNGS AND PLEURA: No pneumothorax. No consolidation or pleural effusion. MEDIASTINUM AND HILAR STRUCTURES: Stable. HEART AND VASCULAR STRUCTURES: Stable. BONES: No acute findings. HARDWARE: Surgical clips in the left axilla. OTHER: No other significant finding. IMPRESSION: NO ACUTE FINDINGS. TECHNICAL DOCUMENTATION: JOB ID: [id number] [place]-72 2010 [employer]- All Rights Reserved Reading location - IP/workstation name: [email or web address]
--- NOTE | 2018-06-25 19:28 | RADIOLOGY REPORT (SQ) ---
EXAM DESCRIPTION: CT HEAD WITHOUT COMPLETED DATE/TIME: 06/25/2018 7:10 pm REASON FOR STUDY: ams, demented but acutely altered per [facility] COMPARISON: 07/22/2017 TECHNIQUE: Axial images acquired through the brain without intravenous contrast. Images reviewed wi th bone, brain and subdural windows. Images stored on PACS. All CT scanners at this facility use dose modulation, iterative reconstruction, and/or weight based d osing when appropriate to reduce radiation dose to as low as reasonably achievable (ALARA). [facility]: Dose Right [facility]: CareDose [facility]: Dose Right [facility]: Teradose 4D [facility]: Smart Ecast RADIATION DOSE: CT Rad equipment meets quality standard of care and radiation dose reduction techniq ues were employed. CTDIvol: 55.2 mGy. DLP: 2113 mGy-cm.mGy. LIMITATIONS: None. FINDINGS: VENTRICLES: Prominent. CEREBRUM: No masses. No hemorrhage. No midline shift. Areas of low density in the white matter mos t likely due to chronic micro-vascular ischemic change. No evidence for acute infarction. CEREBELLUM: No masses. No hemorrhage. No alteration of density. No evidence for acute infarction. EXTRAAXIAL SPACES: Age-related involutional change. No fluid collections. No masses. ORBITS AND GLOBE: No intra- or extraconal masses. Normal contour of globe without masses. CALVARIUM: No fracture. PARANASAL SINUSES: No fluid or mucosal thickening. SOFT TISSUES: No mass or hematoma. OTHER: No other significant finding. IMPRESSION: No acute intracranial findings. EVIDENCE OF ACUTE STROKE: NO. TECHNICAL DOCUMENTATION: JOB ID: [id number] [place]-72 Quality ID # [id number]: Final reports with documentation of one or more dose reduction techniques (e.g., Au tomated exposure control, adjustment of the mA and/or kV according to patient size, use of iterative reconstruction technique) 2010 [employer]- All Rights Reserved Reading location - IP/workstation name: [email or web address]
--- NOTE | 2018-06-25 19:33 | RADIOLOGY REPORT (SQ) ---
EXAM DESCRIPTION: CT PELVIS WITHOUT COMPLETED DATE/TIME: 06/25/2018 7:10 pm REASON FOR STUDY: demented, hip/pelvis pain, abrasions, bruises COMPARISON: 10/26/2008 TECHNIQUE: CT scan of the pelvis performed without intravenous or oral contrast. Images reviewed wi th soft tissue and bone windows. All images stored on PACS. All CT scanners at this facility use dose modulation, iterative reconstruction, and/or weight based d osing when appropriate to reduce radiation dose to as low as reasonably achievable (ALARA). [facility]: Dose Right [facility]: CareDose [facility]: Dose Right [facility]: Teradose 4D [facility]: [employer] RADIATION DOSE: CT Rad equipment meets quality standard of care and radiation dose reduction techniq ues were employed. CTDIvol: 24.7 mGy. DLP: 1959 mGy-cm. mGy. LIMITATIONS: None. FINDINGS: PELVIC BONES: No acute fracture. No worrisome bone lesions. VISUALIZED SPINE: No acute findings. HIP(S): No acute fracture or dislocation. No worrisome bone lesions. PELVIC SOFT TISSUES: No significant findings. EXTRAPELVIC SOFT TISSUES: No significant findings. OTHER: No other significant finding. IMPRESSION: No fracture identified. TECHNICAL DOCUMENTATION: JOB ID: [id number] [place]-72 Quality ID # [id number]: Final reports with documentation of one or more dose reduction techniques (e.g., Au tomated exposure control, adjustment of the mA and/or kV according to patient size, use of iterative reconstruction technique) 2010 [employer]- All Rights Reserved Reading location - IP/workstation name: [email or web address]
--- NOTE | 2018-06-25 20:54 | EKG REPORT ---
SEVERITY:- ABNORMAL ECG - SINUS RHYTHM LEFT AXIS DEVIATION PROBABLE LEFT VENTRICULAR HYPERTROPHY BORDERLINE PROLONGED QT INTERVAL : Confirmed by: Cecy Tuttle MD 25-Jun-2018 20:54:11
[2018-06-25 21:29] VITALS: BP 122/99
== END 2018-06-25 21:36 | disposition home or self-care (01) ==
LOC: ER 16:07
DX: G30.9 Alzheimer's disease, unspecified (principal); E78.00 Pure hypercholesterolemia, unspecified; I10 Essential (primary) hypertension; E11.9 Type 2 diabetes mellitus without complications; Z88.6 Allergy status to analgesic agent; Z85.3 Personal history of malignant neoplasm of breast; Z90.710 Acquired absence of both cervix and uterus
CPT/HCPCS: 93005; 99285; 36415; 82550; 85025; 80053; 81001; 84484; 71045; 73552; 72170; 70450; 72192; 93010; J7030

== ENCOUNTER 2018-06-26 11:22 | Emergency (ER) | payer MEDICARE ==
--- NOTE | 2018-06-26 12:09 | ER Document Report ---
ED General - General Chief Complaint: Altered Mental Status Stated Complaint: GENERAL WEAKNESS Time Seen by Provider: 06/26/18 12:07 Primary Care Provider: MONICA ABBASI MD [Primary Care Provider] - Follow up as needed Mode of Arrival: Stretcher Information source: Relative Cannot obtain history due to: Dementia, Altered mental status TRAVEL OUTSIDE OF THE [place] IN LAST 30 DAYS: No - HPI Onset: Other - 2-3 days ago. Onset/Duration: Gradual, Constant Quality of pain: No pain Severity: Moderate Pain Level: 3 Associated symptoms: Weakness - Generalized Similar symptoms previously: Yes Recently seen / treated by doctor: Yes - Yesterday. - Related Data Allergies/Adverse Reactions: codeine [Codeine] Adverse Reaction (Intermediate, Verified 06/25/18 17:52) Nausea Past Medical History - Social History Smoking Status: Unknown if Ever Smoked Family History: Reviewed & Not Pertinent - Past Medical History Cardiac Medical History: Reports: Hx Hypercholesterolemia, Hx Hypertension Denies: Hx Coronary Artery Disease, Hx Heart Attack Pulmonary Medical History: Reports: Hx Pneumonia - no hospitalization Denies: Hx Asthma, Hx Bronchitis, Hx COPD, Hx Tuberculosis Neurological Medical History: Denies: Hx Cerebrovascular Accident, Hx Seizures Endocrine Medical History: Reports: Hx Diabetes Mellitus Type 2 Renal/ Medical History: Denies: Hx Peritoneal Dialysis Malignancy Medical History: Reports: Hx Breast Cancer - Left GI Medical History: Reports: Hx Gastroesophageal Reflux Disease, Hx Colonoscopy Musculoskeletal Medical History: Reports Hx Arthritis Past Surgical History: Reports: Hx Hysterectomy, Hx Mastectomy - left, Other - Cataract. Denies: Hx Pacemaker - Immunizations Hx Diphtheria, Pertussis, Tetanus Vaccination: Yes - 2005 Hx Pneumococcal Vaccination: 01/30/12 Review of Systems - Review of Systems -: Yes ROS unobtainable due to patient's medical condition - Altered mental status. -: Yes All other systems reviewed and negative Physical Exam - Vital signs Vitals: Pulse Ox 96 06/26/18 11:42 Interpretation: Normal - General General appearance: Alert, Lethargic In distress: None - HEENT Head: Normocephalic, Atraumatic Eyes: Normal Pupils: PERRL - Respiratory Respiratory status: No respiratory distress Chest status: Nontender Breath sounds: Normal Chest palpation: Normal - Cardiovascular Rhythm: Regular Heart sounds: Normal auscultation Murmur: No - Abdominal Inspection: Normal Distension: No distension Bowel sounds: Normal Tenderness: Nontender Organomegaly: No organomegaly - Back Back: Normal, Nontender - Extremities General upper extremity: Normal inspection, Nontender, Normal color, Normal ROM, Normal temperature General lower extremity: Normal inspection, Nontender, Normal color, Normal ROM, Normal temperature, Normal weight bearing. No: Lila's sign - Neurological Notes: Unable to evaluate because patient is altered and does not follow commands. GCS = 8. - Psychological Associated symptoms: Normal affect, Normal mood - Skin Skin Temperature: Warm Skin Moisture: Dry Skin Color: Normal Course - Vital Signs Vital signs: Temp Pulse Resp BP Pulse Ox 98.4 F 11 L 146/69 H 99 06/26/18 15:14 06/26/18 18:01 06/26/18 18:01 06/26/18 18:01 - Laboratory Result Diagrams: 06/26/18 11:40 06/26/18 11:40 Laboratory results interpreted by me: 06/26/18 06/26/18 06/26/18 11:40 11:40 11:40 RDW 14.1 H Seg Neuts % (Manual) 91 H Lymphocytes % (Manual) 4 L Abs Neuts (Manual) 8.6 H Abs Lymphs (Manual) 0.4 L Potassium 3.4 L BUN 25 H Est GFR ( Amer) 55 L Est GFR (Non-Af Amer) 46 L Glucose 260 H POC Glucose Lactic Acid 3.8 H Calcium 10.9 H Ammonia Urine Glucose (UA) Urine Ketones Urine Blood Urine Nitrite 06/26/18 06/26/18 06/26/18 12:36 14:30 15:10 RDW Seg Neuts % (Manual) Lymphocytes % (Manual) Abs Neuts (Manual) Abs Lymphs (Manual) Potassium BUN Est GFR ( Amer) Est GFR (Non-Af Amer) Glucose POC Glucose 239 H Lactic Acid Calcium Ammonia < 8.7 L Urine Glucose (UA) 150 H Urine Ketones 20 H Urine Blood SMALL H Urine Nitrite POSITIVE H - Diagnostic Test Radiology reviewed: Reports reviewed - Transfer of Care Notes: 06/26/18 17:50 Patient was accepted for transfer to [facility] by Dr Prakash for higher level of care. Procedures - Intubation Orotracheal Time of Intubation: 16:30 Airway evaluation: Normal anatomy Mallampati Classification: Class 2 Medications: Etomidate, Other - Rocuronium Intubation method: Orotracheal Blade type: Zaid Blade size: 3 Equipment used: Glidescope ETT size: 7.5 ETT secured at: Lips Breath Sounds after Intubation: Equal End tidal CO2 confirmed: Yes Ventilator settings: AC Post Intubation Xray: Yes Intubation Complications: No complications Critical Care Note - Critical Care Note Total time excluding time spent on procedures (mins): 65 Discharge - Discharge Clinical Impression: Intraparenchymal hemorrhage of brain, Hypertensive emergency Altered mental status Qualifiers: Altered mental status type: unspecified Qualified Code(s): R41.82 - Altered mental status, unspecified Condition: Critical Disposition: [facility] Referrals: MONICA ABBASI MD [Primary Care Provider] - Follow up as needed
[2018-06-26] MEDS ORDERED: LABETALOL HCL INJ 20 MG/4 ML DISP.SYRIN IV ONE (12:12)
--- NOTE | 2018-06-26 12:12 | RADIOLOGY REPORT (SQ) ---
EXAM DESCRIPTION: CHEST SINGLE VIEW COMPLETED DATE/TIME: 06/26/2018 11:39 am REASON FOR STUDY: bed 16 sepsis alert COMPARISON: 06/25/2018 EXAM PARAMETERS: NUMBER OF VIEWS: One view. TECHNIQUE: Single frontal radiographic view of the chest acquired. RADIATION DOSE: NA LIMITATIONS: None. FINDINGS: LUNGS AND PLEURA: No opacities, masses or pneumothorax. No pleural effusion. MEDIASTINUM AND HILAR STRUCTURES: No masses. Contour normal. HEART AND VASCULAR STRUCTURES: Heart normal in size. Normal vasculature. BONES: No acute findings. HARDWARE: None in the chest. OTHER: No other significant finding. IMPRESSION: NO ACUTE RADIOGRAPHIC FINDING IN THE CHEST. TECHNICAL DOCUMENTATION: JOB ID: [id number] [employer]- All Rights Reserved Reading location - IP/workstation name: [email or web address]
[2018-06-26] MEDS ORDERED: NORMAL SALINE 1000 ML 1,000 ML IV ONE ×2 (12:13→15:05)
[2018-06-26 12:33] LABS: VENOUS BLOOD BASE EXCESS -3.2 mmol/L; VENOUS BLOOD HCO3 21.2 mmol/L (20-32); VENOUS BLOOD PCO2 36.5 mmHg (35-63); VENOUS BLOOD PH 7.38 (7.30-7.42)
[2018-06-26 12:34] LABS: INTERNATIONAL RATION (INR) 0.93; PROTHROMBIN TIME 12.9 SEC (11.4-15.4)
[2018-06-26 12:37] LABS: HEMATOCRIT 38.8 % (36.0-47.0); HEMOGLOBIN 13.2 g/dL (12.0-15.5); MEAN CORPUSCULAR HEMOGLOBIN 29.7 pg (27.0-33.4); MEAN CORPUSCULAR VOLUME 87 fl (80-97); PLATELET COUNT 185 10^3/uL (150-450); RED BLOOD COUNT 4.44 10^6/uL (3.72-5.28); RED CELL DISTRIBUTION WIDTH 14.1 % (11.5-14.0); WHITE BLOOD COUNT 9.5 10^3/uL (4.0-10.5)
[2018-06-26 12:56] LABS: ALANINE AMINOTRANSFERASE 16 U/L (9-52); ALBUMIN 4.6 g/dL (3.5-5.0); ALKALINE PHOSPHATASE 79 U/L (38-126); ANION GAP 13 (5-19); ASPARTATE AMINO TRANSFERASE 31 U/L (14-36); BILIRUBIN,DIRECT 0.3 mg/dL (0.0-0.4); BILIRUBIN,TOTAL 1.1 mg/dL (0.2-1.3); BLOOD UREA NITROGEN 25 mg/dL (7-20); CALCIUM 10.9 mg/dL (8.4-10.2); CARBON DIOXIDE 25 mmol/L (22-30); CHLORIDE 102 mmol/L (98-107); CREATINE KINASE 83 U/L (30-135); GLUCOSE 260 mg/dL (75-110); LIPASE 38.9 U/L (23-300); POTASSIUM 3.4 mmol/L (3.6-5.0); SODIUM 139.8 mmol/L (137-145); TOTAL PROTEIN 7.6 g/dL (6.3-8.2)
[2018-06-26 13:03] LABS: ABSOLUTE LYMPHOCYTES# (MANUAL) 0.4 10^3/uL (0.5-4.7); ABSOLUTE MONOCYTES # (MANUAL) 0.5 10^3/uL (0.1-1.4); ABSOLUTE NEUTROPHILS# (MANUAL) 8.6 10^3/uL (1.7-8.2); BASOPHILS % (MANUAL) 0 % (0-2); EOSINOPHILS % (MANUAL) 0 % (0-6); LYMPHOCYTES % (MANUAL) 4 % (13-45); MONOCYTES % (MANUAL) 5 % (3-13); SEGMENTED NEUTROPHILS % (MAN) 91 % (42-78); TOTAL CELLS COUNTED 100
[2018-06-26 13:04] LABS: ANISOCYTOSIS SLIGHT; OVALOCYTES 1+; PLATELET COMMENT ADEQUATE; POIKILOCYTOSIS 1+
[2018-06-26] MEDS ORDERED: HYDRALAZINE HCL INJ/PF 20 MG/1 ML SDV IV ONE ×2 (13:35→17:12)
[2018-06-26 13:42] LABS: CREATINE KINASE MB 2.04 ng/mL (<4.55); TROPONIN I 0.023 ng/mL
[2018-06-26 15:45] LABS: APPEARANCE,URINE CLEAR; BILIRUBIN,URINE NEGATIVE (NEGATIVE); COLOR,URINE YELLOW; GLUCOSE, URINE 150 mg/dL (NEGATIVE); KETONES,URINE 20 mg/dL (NEGATIVE); LEUKOCYTE ESTERASE,URINE NEGATIVE (NEGATIVE); NITRITE,URINE POSITIVE (NEGATIVE); PROTEIN,URINE NEGATIVE (NEGATIVE); UROBILINOGEN,URINE NEGATIVE mg/dL (<2.0)
[2018-06-26] MEDS ORDERED: ETOMIDATE INJ/PF 20 MG/10 ML SDV IV ONE ×2 (16:08→18:34)
[2018-06-26] MEDS ORDERED: PROPOFOL 1,000 MG/100 ML INFUS..BTL IV ONE (16:08)
--- NOTE | 2018-06-26 16:12 | RADIOLOGY REPORT (SQ) ---
EXAM DESCRIPTION: CT HEAD WITHOUT COMPLETED DATE/TIME: 06/26/2018 3:56 pm REASON FOR STUDY: Altered mental status COMPARISON: CT head 06/25/2018. TECHNIQUE: Axial images acquired through the brain without intravenous contrast. Images reviewed wi th bone, brain and subdural windows. Images stored on PACS. All CT scanners at this facility use dose modulation, iterative reconstruction, and/or weight based d osing when appropriate to reduce radiation dose to as low as reasonably achievable (ALARA). [facility]: Dose Right [facility]: CareDose [facility]: Dose Right [facility]: Teradose 4D [facility]: [employer] RADIATION DOSE: mGy. LIMITATIONS: Motion artifact. FINDINGS: VENTRICLES: Mildly prominent. CEREBRUM: Interval development of acute intraparenchymal hemorrhage at the left occipitotemporal sonia on measuring 3.1 x 1.7 cm. Patchy white matter hypodensities within the periventricular white matter are probably secondary to chronic microvascular ischemic changes. Otherwise, the powell-white matter differentiation is preserved in the remainder of the brain. CEREBELLUM: No hemorrhage. No alteration of density. No evidence for acute infarction. EXTRAAXIAL SPACES: No fluid collections. ORBITS AND GLOBE: Symmetrical contour of the globes. CALVARIUM: No depressed fracture. PARANASAL SINUSES: No air-fluid level. SOFT TISSUES: No hematoma. IMPRESSION: 1. Study degraded by motion artifact. Interval development of acute intraparenchymal hemorrhage at the left occipitotemporal region. 2. Chronic changes of atrophy and microvascular ischemia. EVIDENCE OF ACUTE STROKE: NO. COMMENT: Pertinent findings on the imaging study reported as a CRITICAL RESULT to PARVIZ quinones t16:04 hrs on 06/26/2018. Category of Critical Result: Acute intracranial hemorrhage. Quality ID # [id number]: Final reports with documentation of one or more dose reduction techniques (e.g., Au tomated exposure control, adjustment of the mA and/or kV according to patient size, use of iterative reconstruction technique) TECHNICAL DOCUMENTATION: JOB ID: [id number] [employer]- All Rights Reserved Reading location - IP/workstation name: [email or web address]
[2018-06-26] MEDS ORDERED: ROCURONIUM BROMIDE INJ 50 MG/5 ML VIAL IV ONE ×2 (16:15→17:44)
[2018-06-26] MEDS ORDERED: HYDRALAZINE HCL INJ/PF 20 MG/1 ML SDV ONE (16:43)
--- NOTE | 2018-06-26 17:02 | RADIOLOGY REPORT (SQ) ---
EXAM DESCRIPTION: CHEST SINGLE VIEW COMPLETED DATE/TIME: 06/26/2018 4:47 pm REASON FOR STUDY: post intubation COMPARISON: None. EXAM PARAMETERS: NUMBER OF VIEWS: One view. TECHNIQUE: Single frontal radiographic view of the chest acquired. RADIATION DOSE: NA LIMITATIONS: None. FINDINGS: LUNGS AND PLEURA: No acute infiltrates or effusions. MEDIASTINUM AND HILAR STRUCTURES: No masses. Contour normal. HEART AND VASCULAR STRUCTURES: The heart and pulmonary vasculature are normal. BONES: No acute findings. HARDWARE: Interval placement an endotracheal tube above anaid. NG tube seen to the distal esophagus . The NG tube could be advanced 4 cm. OTHER: Surgical clips left axilla and overlying left chest IMPRESSION: Endotracheal tube in good position. The NG tube could be advanced 4 cm. Otherwise, no acute disease. TECHNICAL DOCUMENTATION: JOB ID: [id number] [employer]- All Rights Reserved Reading location - IP/workstation name: [email or web address]
[2018-06-26] MEDS ORDERED: NICARDIPINE HCL RTU, ISO-OS 20 MG/200 ML RTUINJ IV PRN (17:12)
[2018-06-26] MEDS ORDERED: NICARDIPINE HCL RTU, ISO-OS 20 MG/200 ML RTUINJ IV ONE (17:15)
[2018-06-26 18:29] VITALS: BP 146/69
[2018-06-26] MEDS ORDERED: PROPOFOL 1,000 MG/100 ML INFUS..BTL IV PRN (18:35)
--- NOTE | 2018-06-26 22:19 | EKG REPORT ---
SEVERITY:- ABNORMAL ECG - SINUS TACHYCARDIA LVH WITH SECONDARY REPOLARIZATION ABNORMALITY : Confirmed by: Cecy Tuttle MD 26-Jun-2018 22:17:51
== END 2018-06-26 18:10 | disposition short-term general hospital (02) ==
LOC: ER 11:22
DX: I61.9 Nontraumatic intracerebral hemorrhage, unspecified (principal); R53.1 Weakness; I16.1 Hypertensive emergency; I10 Essential (primary) hypertension; F03.90 Unspecified dementia, unspecified severity, without behavioral disturbance, psychotic disturbance, mood disturbance, and anxiety; E11.9 Type 2 diabetes mellitus without complications; Z85.3 Personal history of malignant neoplasm of breast
CPT/HCPCS: 93005; 96376; 99291; 96361; 96374; 36415; 87040; 87086; 82553; 82962; 82140; 82550; 83690; 85025; 85610; 87088; 80053; 81001; 84484; 87186; 82803; 83605; 83880; 71045; 70450; 94660; 93010; 31500; J3490 ×2; J2704; J0360; J7030